=== PATIENT | male | born 1990 | race Two or more races ===

== ENCOUNTER 2020-09-02 20:04 | Emergency (ER) | payer SELFPAY ==
[2020-09-02] MEDS ORDERED: Lactated Ringers 1,000 ML IV ONE ×3 (20:34→21:58)
[2020-09-02] MEDS ORDERED: Ketorolac 30 MG/ML SDV IVPUSH ONE (20:34)
[2020-09-02] MEDS ORDERED: Ondansetron 4 MG/2 ML SDV IVPUSH ONE (20:34)
--- NOTE | 2020-09-02 20:41 | EDM.PDOC ---
ED HPI GENERAL MEDICAL PROBLEM - General Chief Complaint: General Stated Complaint: HIGH BLOOD SUGAR Time Seen by Provider: 09/02/20 20:04 Source of Information: Reports: Patient History Limitations: Reports: Language Barrier - History of Present Illness INITIAL COMMENTS - FREE TEXT/NARRATIVE: Patient comes in the emergency department with his friend with concerns of hyperglycemia. Patient is a [place]-speaking individual who speaks little to no Hungarian and his friend is interpreting for the most part and states that the patient has run out of his insulin-long acting as of 24 to 48 hours ago and the patient began feeling ill yesterday had sweats, nausea, and elevated blood sugars. Patient was beginning to feel little bit better this morning according to the patient's friend however then he began to decline which presented him to the emergency department. Patient feels nauseated, dizzy, blurred vision, thirsty, vomiting and fatigue. Patient states that he took his blood sugar at home and it was greater than 400. Bedside glucose shows 300s. Onset: Gradual Location: Reports: Generalized Quality: Reports: Other Improves with: Reports: None Worsens with: Reports: None Context: Reports: Other Associated Symptoms: Reports: No Other Symptoms - Related Data Allergies Allergy/AdvReac Type Severity Reaction Status Date / Time Penicillins Allergy Other Verified 09/02/20 21:07 Home Meds: Home Meds Insulin Glarg,Human.Rec.Analog [Lantus] 5 unit SQ BID #1 pen 09/02/20 [Rx] ED ROS GENERAL - Review of Systems Review Of Systems: Comprehensive ROS is negative, except as noted in HPI. Constitutional: Reports: Chills, Malaise, Weakness, Fatigue, Diaphoresis, Decreased Appetite HEENT: Reports: Vision Change Respiratory: Reports: No Symptoms Cardiovascular: Reports: Lightheadedness Endocrine: Reports: Fatigue, High Glucose, Polydypsia GI/Abdominal: Reports: Nausea, Vomiting : Reports: No Symptoms Musculoskeletal: Reports: No Symptoms Skin: Reports: No Symptoms Neurological: Reports: No Symptoms Psychiatric: Reports: No Symptoms Hematologic/Lymphatic: Reports: No Symptoms ED EXAM, GENERAL - Physical Exam Exam: See Below Exam Limited By: Language Barrier (non-wolof speaking- greek) General Appearance: Mild Distress Eye Exam: Bilateral Eye: EOMI, PERRL Ears: Normal External Exam, Normal Canal, Hearing Grossly Normal Nose: Normal Inspection, Normal Mucosa, No Blood Throat/Mouth: Normal Inspection, Normal Lips, No Airway Compromise, Other (dry mucosal membranes) Head: Atraumatic, Normocephalic Neck: Normal Inspection, Supple, Non-Tender, Full Range of Motion Respiratory/Chest: No Respiratory Distress, Lungs Clear, Normal Breath Sounds, N o Accessory Muscle Use, Chest Non-Tender Cardiovascular: Normal Peripheral Pulses, Regular Rate, Rhythm, No Edema GI/Abdominal: Normal Bowel Sounds, Soft, Non-Tender, No Abnormal Bruit, No Mass Back Exam: Normal Inspection, Full Range of Motion Extremities: Normal Inspection, Normal Range of Motion, Non-Tender, Normal Capillary Refill Neurological: Alert, Oriented, Normal Gait Psychiatric: Normal Affect, Normal Mood Skin Exam: Warm, Dry, Intact, Normal Color #1 Interpretation Rate (Beats/Min): 133 [place]: Normal P-Wave: Present QRS: Normal ST-T: Normal QT: Normal Comparison: NA - No Prior EKG Course - Vital Signs Last Recorded V/S: Last Vital Signs Temp 38.5 C H 09/02/20 20:20 Pulse 117 H 09/02/20 21:32 Resp 20 09/02/20 21:32 BP 113/70 09/02/20 21:32 Pulse Ox 91 L 09/02/20 21:32 - Orders/Labs/Meds Orders: Active Orders 24 hr Category Date Time Status Blood Glucose Check, Bedside [RC] ONETIME Care 09/02/20 20:29 Ordered EKG Documentation Completion [RC] STAT Care 09/02/20 20:29 Ordered Chest 1V Frontal [CR] Stat Exams 09/02/20 20:29 Ordered B-HYDROXYBUTYRATE [REF] Stat Lab 09/02/20 20:29 Ordered Dextrose 50% in Water Med 09/02/20 20:51 Ordered 50 ml IVPUSH ASDIRECTED PRN Glucagon,Human Recombinant [GlucaGen] Med 09/02/20 20:51 Ordered 1 mg IM ASDIRECTED PRN Insulin Glarg,Human.Rec.Analog [LantUS] Med 09/02/20 21:45 Ordered 5 unit SUBCUT DAILY Medication Orders Dextrose/Water (50% Dextrose In Water 50 Ml Syringe) 50 ml IVPUSH ASDIRECTED P RN PRN Reason: Hypoglycemia Glucagon (Glucagon,Human Recombinant 1 Mg Vial) 1 mg IM ASDIRECTED PRN PRN Reason: Hypoglycemia Insulin Glargine (Insulin Glarg,Human.Rec.Analog 100 Unit/Ml) 5 unit SUBCUT DAILY DI Labs: Laboratory Tests 09/02/20 09/02/20 09/02/20 Range/Units 20:11 20:20 20:20 WBC 11.6 H (4.0-10.0) x10^3/uL RBC 3.89 L (4.5-6.0) x10^6/uL Hgb 12.3 L (14.0-18.0) g/dL Hct 34.5 L (40.0-52.0) % MCV 88.7 (78.0-93.0) fL MCH 31.6 (26.0-32.0) pg MCHC 35.7 (32.0-36.0) g/dL RDW Coeff of Gordon 12.8 (10.0-15.0) % Plt Count 194 (130-400) x10^3/uL ABG pH (7.35-7.45) pH ABG pCO2 (35-48) mmHG ABG pO2 (83-108) mmHG ABG HCO3 (21-28) mmol/L ABG Total CO2 (22-29) mmol/L ABG O2 Content (94-98) % ABG Base Excess ((-2)-(+3)) mmol/L FiO2 Sodium (136-145) mmol/L Potassium (3.5-5.1) mmol/L Chloride (98-107) mmol/L Carbon Dioxide (21-32) mmol/L Anion Gap (5-15) mmol/L BUN (7-18) mg/dL Creatinine (0.70-1.30) mg/dL Est Cr Clr Drug Dosing mL/min Estimated GFR (MDRD) Glucose (70-99) mg/dL POC Glucose 319 H (70-99) mg/dL Lactic Acid 1.4 (0.4-2.0) mmol/L Calcium (8.5-10.1) mg/dL Corrected Calcium (8.5-10.1) mg/dL Total Bilirubin (0.2-1.0) mg/dL AST (15-37) U/L ALT (16-63) U/L Alkaline Phosphatase (46-116) U/L Troponin I High Sens (<=76) ng/L Total Protein (6.4-8.2) g/dL Albumin (3.4-5.0) g/dL Globulin Albumin/Globulin Ratio Amylase (25-115) U/L Lipase (73-393) U/L Urine Color (YELLOW) Urine Appearance (CLEAR) Urine pH (5.0-8.0) Ur Specific [place] Urine Protein (NEGATIVE) mg/dL Urine Glucose (UA) (NEGATIVE) mg/dL Urine Ketones (NEGATIVE) mg/dL Urine Occult Blood (NEGATIVE) Urine Nitrite (NEGATIVE) Urine Bilirubin (NEGATIVE) Urine Urobilinogen (0.2) EU/dL Ur Leukocyte Esterase (NEGATIVE) Urine RBC (NOT SEEN) /HPF Urine WBC (NOT SEEN) /HPF Ur Squamous Epith Cells (NOT SEEN) /HPF Urine Bacteria (NOT SEEN) /HPF Urine Mucus (NOT SEEN) /LPF 09/02/20 09/02/20 09/02/20 Range/Units 20:50 21:10 21:27 WBC (4.0-10.0) x10^3/uL RBC (4.5-6.0) x10^6/uL Hgb (14.0-18.0) g/dL Hct (40.0-52.0) % MCV (78.0-93.0) fL MCH (26.0-32.0) pg MCHC (32.0-36.0) g/dL RDW Coeff of Gordon (10.0-15.0) % Plt Count (130-400) x10^3/uL ABG pH 7.48 H (7.35-7.45) pH ABG pCO2 31 L (35-48) mmHG ABG pO2 62 L (83-108) mmHG ABG HCO3 23 (21-28) mmol/L ABG Total CO2 23 (22-29) mmol/L ABG O2 Content 93 L (94-98) % ABG Base Excess -1 ((-2)-(+3)) mmol/L FiO2 0.21 Sodium 134 L (136-145) mmol/L Potassium 3.5 (3.5-5.1) mmol/L Chloride 100 (98-107) mmol/L Carbon Dioxide 28 (21-32) mmol/L Anion Gap 9.5 (5-15) mmol/L BUN 15 (7-18) mg/dL Creatinine 1.1 (0.70-1.30) mg/dL Est Cr Clr Drug Dosing 61.36 mL/min Estimated GFR (MDRD) > 60 Glucose 250 H (70-99) mg/dL POC Glucose (70-99) mg/dL Lactic Acid (0.4-2.0) mmol/L Calcium 8.2 L (8.5-10.1) mg/dL Corrected Calcium 9.2 (8.5-10.1) mg/dL Total Bilirubin 0.4 (0.2-1.0) mg/dL AST 25 (15-37) U/L ALT 26 (16-63) U/L Alkaline Phosphatase 149 H (46-116) U/L Troponin I High Sens 7 (<=76) ng/L Total Protein 7.6 (6.4-8.2) g/dL Albumin 2.7 L (3.4-5.0) g/dL Globulin 4.9 Albumin/Globulin Ratio 0.55 Amylase 16 L (25-115) U/L Lipase 45 L (73-393) U/L Urine Color Yellow (YELLOW) Urine Appearance Clear (CLEAR) Urine pH 6.0 (5.0-8.0) Ur Specific [place] 1.020 Urine Protein >=300 H (NEGATIVE) mg/dL Urine Glucose (UA) 500 H (NEGATIVE) mg/dL Urine Ketones Trace H (NEGATIVE) mg/dL Urine Occult Blood Moderate H (NEGATIVE) Urine Nitrite Negative (NEGATIVE) Urine Bilirubin Negative (NEGATIVE) Urine Urobilinogen 1.0 (0.2) EU/dL Ur Leukocyte Esterase Negative (NEGATIVE) Urine RBC 10-20 H (NOT SEEN) /HPF Urine WBC 0-5 (NOT SEEN) /HPF Ur Squamous Epith Cells Not seen (NOT SEEN) /HPF Urine Bacteria Rare (NOT SEEN) /HPF Urine Mucus Rare H (NOT SEEN) /LPF Meds: Medications Generic Name Dose Route Start Last Admin Trade Name Freq PRN Reason Stop Dose Admin Dextrose/Water 50 ml 09/02/20 20:51 50% Dextrose In Water 50 Ml Syringe IVPUSH ASDIRECTED PRN Hypoglycemia Glucagon 1 mg 09/02/20 20:51 Glucagon,Human Recombinant 1 Mg Vial IM ASDIRECTED PRN Hypoglycemia Insulin Glargine 5 unit 09/02/20 21:45 Insulin Glarg,Human.Rec.Analog 100 Unit/Ml SUBCUT DAILY DI Discontinued Medications Generic Name Dose Route Start Last Admin Trade Name Ramez PRN Reason Stop Dose Admin Lactated Ringer's 1,000 mls @ 1,000 mls/hr 09/02/20 20:34 09/02/20 20:20 Ringers, Lactated IV 09/02/20 21:33 1,000 mls/hr ONETIME ONE Administration Lactated Ringer's 1,000 mls @ 1,000 mls/hr 09/02/20 20:34 09/02/20 20:40 Ringers, Lactated IV 09/02/20 21:33 1,000 mls/hr ONETIME ONE Administration Insulin Human Regular 5 unit 09/02/20 20:51 Insulin Regular, Human 100 Units/Ml 3 Ml Vial IVPUSH 09/02/20 20:52 ONETIME ONE Ketorolac Tromethamine 30 mg 09/02/20 20:34 09/02/20 20:51 Ketorolac 30 Mg/Ml Sdv IVPUSH 09/02/20 20:35 30 mg ONETIME ONE Administration Ondansetron HCl 4 mg 09/02/20 20:34 09/02/20 20:51 Ondansetron 4 Mg/2 Ml Sdv IVPUSH 09/02/20 20:35 4 mg ONETIME ONE Administration - Re-Assessments/Exams Free Text/Narrative Re-Assessment/Exam: 09/02/20 21:51 Patient is feeling much better. It is recommended that he remain in the hospital at minimum over night however he is not willing. He understands the risk and willing to assume then and would like to go home with a script for Lantus. Departure - Departure Time of Disposition: 22:00 Disposition: Home, Self-Care 01 Condition: Good Clinical Impression: Hyperglycemia Diabetes mellitus Qualifiers: Diabetes mellitus type: type 1 Diabetes mellitus complication status: without complication Qualified Code(s): E10.9 - Type 1 diabetes mellitus without complications - Discharge Information *PRESCRIPTION DRUG MONITORING PROGRAM REVIEWED*: Not Applicable *COPY OF PRESCRIPTION DRUG MONITORING REPORT IN PATIENT KAREN: Not Applicable Instructions: Diabetes Mellitus and Sick Day Management, Hyperglycemia, [id number] Forms: ED Department Discharge Additional Instructions: 1. rest 2. increase your water intake 3. Continue all at home medications 4. Activity and diet as tolerated 5. Can take over the counter Tylenol for any pain or discomfort 6. Follow up with PCP if symptoms continue, return, or progress 7. Call with any questions or concerns 8. It is recommended that you remain hospitalized to monitor your blood sugars. You understand the risk of not remaining under a providers care. Sepsis Event Note (ED) - Focused Exam Vital Signs: Vital Signs Temp Pulse Resp BP Pulse Ox 09/02/20 21:32 117 H 20 113/70 91 L 09/02/20 20:20 38.5 C H 127 H 20 130/72 94 L - My Orders Last 24 Hours: My Active Orders 09/02/20 20:29 Blood Glucose Check, Bedside [RC] ONETIME EKG Documentation Completion [RC] STAT Chest 1V Frontal [CR] Stat B-HYDROXYBUTYRATE [REF] Stat 09/02/20 20:51 Dextrose 50% in Water 50 ml IVPUSH ASDIRECTED PRN Glucagon,Human Recombinant [GlucaGen] 1 mg IM ASDIRECTED PRN 09/02/20 21:45 Insulin Glarg,Human.Rec.Analog [LantUS] 5 unit SUBCUT DAILY - Assessment/Plan Last 24 Hours: My Active Orders 09/02/20 20:29 Blood Glucose Check, Bedside [RC] ONETIME EKG Documentation Completion [RC] STAT Chest 1V Frontal [CR] Stat B-HYDROXYBUTYRATE [REF] Stat 09/02/20 20:51 Dextrose 50% in Water 50 ml IVPUSH ASDIRECTED PRN Glucagon,Human Recombinant [GlucaGen] 1 mg IM ASDIRECTED PRN 09/02/20 21:45 Insulin Glarg,Human.Rec.Analog [LantUS] 5 unit SUBCUT DAILY Assessment:: 1. hyperglycemia 2. tachycardia 3. nausea Plan: 1. Labs completed in the ER. Results reviewed with the patient 2. EKG completed in the ER. Results reviewed with the patient 3. IV initiated in the emergency department 4. IV fluids provided- LR 2 liters given 5. Pain medication given for severe pain and discomfort- Toradol given 6. Zofran given in the ER to help with nausea 7. insulin 5 units Lantus 8. UA completed 9. ABG completed 10. Patient is not willing to stay in the hospital despite education. He will assume the risk and understands the risk of DKA and not staying for further t reatment 11. Patient will be transferred to a higher level of care needing further medical and/or surgical interventions 12. Patient and nursing staff was updated regarding the plan of care 13. Patient and family are agreeable to the above plan of care 14. All questions and concerns were addressed with the patient and family prior to discharge
[2020-09-02] MEDS ORDERED: 50% Dextrose in Water 50 ML Syringe IVPUSH PRN (20:51)
[2020-09-02] MEDS ORDERED: Insulin Regular, Human 100 Units/ML 3 ML Vial IVPUSH ONE (20:51)
[2020-09-02] MEDS ORDERED: Glucagon,Human Recombinant 1 MG Vial IM PRN (20:51)
[2020-09-02 20:59] LABS: BASE EXCESS ARTERIAL -1 mmol/L ((-2)-(+3)); BICARBONATE,ARTERIAL 23 mmol/L (21-28); PCO2 ARTERIAL 31 mmHG (35-48); PO2 ARTERIAL 62 mmHG (83-108)
[2020-09-02 21:35] LABS: ANION GAP 9.5 mmol/L (5-15); CHLORIDE,CL 100 mmol/L (98-107); SODIUM,NA 134 mmol/L (136-145)
[2020-09-02] MEDS ORDERED: Insulin Glarg,Human.Rec.Analog 100 Unit/ML SUBCUT SCH (21:45)
--- NOTE | 2020-09-03 13:11 | CR ---
[id number] RAD/RAD Chest PA or AP 1V EXAM: SINGLE VIEW CHEST. INDICATION: DIABETIC KETOACIDOSIS COMPARISON: NO PREVIOUS SIMILAR EXAM IS AVAILABLE FINDINGS: The lungs are clear The cardiac silhouette is normal IMPRESSION: NO PNEUMONIA Alessandro Ryder MD 09/03/20 [id number] Thank you for allowing us to participate in the care of your patient.
== END 2020-09-02 22:45 | disposition home or self-care (01) ==
LOC: VM.ED 20:04
DX: E10.65 Type 1 diabetes mellitus with hyperglycemia (principal); Z88.0 Allergy status to penicillin
CPT/HCPCS: 36415; 36600; 71045; 80053; 81001; 82010; 82150; 82803; 82947; 83605; 83690; 84484; 85027; 93005; 93010; 96374; 96375; 99284; 99285-25; J1885; J2405; J7120

== ENCOUNTER 2020-09-08 21:35 | Emergency (ER) | payer SELFPAY ==
[2020-09-08] MEDS ORDERED: Sodium Chloride 0.9% 10 ML Syringe FLUSH PRN (22:29)
[2020-09-08] MEDS ORDERED: Piperacillin/Tazobactam 4.5 GM in Sodium Chloride 0.9% 100 ML IV ONE (22:33)
[2020-09-08] MEDS ORDERED: Lactated Ringers 1,000 ML IV ONE (22:33)
[2020-09-08] MEDS ORDERED: Iopamidol 612 MG/ML 100 ML Bottle IVPUSH ONE (22:50)
[2020-09-08] MEDS ORDERED: Piperacillin/Tazobactam 4.5 GM Vial ONE (22:57)
[2020-09-08 23:00] LABS: BASE EXCESS VENOUS 2 mmol/L ((-2)-3); BICARBONATE,VENOUS 25 mmol/L (22-29); O2 SATURATION VENOUS 82 %; PCO2 VENOUS 32 mmHG (41-51); PH,VENOUS 7.51 pH (7.33-7.43); PO2 VENOUS 41 mmHG
[2020-09-08] MEDS ORDERED: Clindamycin Phosphate in D5W 600 MG in Premix Bag 1 BAG IV ONE ×2 (23:17)
[2020-09-08 23:19] LABS: CHLORIDE,CL 89 mmol/L (98-107)
[2020-09-08 23:22] LABS: ANION GAP 13.1 mmol/L (5-15); SODIUM,NA 127 mmol/L (136-145)
[2020-09-08] MEDS ORDERED: Potassium Chloride 10% 20 MEQ/15 ML Soln 15 ML UD Cup PO ONE (23:35)
[2020-09-08] MEDS ORDERED: 50% Dextrose in Water 50 ML Syringe IVPUSH PRN (23:38)
[2020-09-08] MEDS ORDERED: Insulin Regular, Human 100 Units/ML 3 ML Vial SUBCUT STA (23:38)
[2020-09-08] MEDS ORDERED: Glucagon,Human Recombinant 1 MG Vial IM PRN (23:38)
[2020-09-08] MEDS ORDERED: Clindamycin Phosphate in D5W 50 ML ONE (23:38)
[2020-09-08] MEDS ORDERED: Sodium Chloride 0.9% 1,000 ML IV ONE (23:39)
[2020-09-08] MEDS ORDERED: Diphtheria,Pertussis(Acell),Tetanus Vaccine 0.5 ML Syringe IM ONE (23:46)
[2020-09-08] MEDS ORDERED: HYDROmorphone 1 MG/ML Syringe IVPUSH ONE (23:48)
[2020-09-08] MEDS ORDERED: Ondansetron 4 MG/2 ML SDV IV ONE (23:54)
[2020-09-09] MEDS ORDERED: Potassium Chloride Riders 10 MEQ in Premix Bag 1 BAG IV ONE (00:01)
--- NOTE | 2020-09-09 00:10 | EDM.PDOC ---
ED HPI GENERAL MEDICAL PROBLEM - General Stated Complaint: ankle infection Time Seen by Provider: 09/08/20 22:15 Source of Information: Reports: Patient, Family, [employer] History Limitations: Reports: No Limitations - History of Present Illness INITIAL COMMENTS - FREE TEXT/NARRATIVE: Patient comes emergency department today with his friends and family with concerns of an infection to his left lower extremity. This patient speaks [place]ian and his family members have agreed to translate for him. According to the family per translation patient on twisted his left ankle while he was at work. He was not seen at that time. 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 He is also a type I diabetic. His blood sugars been 2 50-300 the last couple of days. When he twisted his ankle on there was no breaks in the skin. This morning when he woke up he noticed on the lateral aspect of his left ankle there was a rather large blister. Tonight this blister opened up and started draining purulent fluid. He does complain of generalized malaise myalgias as well as fever and chills. No chest pain or shortness of breath or difficulty breathing. No cough or congestion. No abdominal pain. Some nausea without vomiting. His last tetanus immunization was in 2019 when he had the surgery on his foot for the gangrene. left outer ankle Pain Score (Numeric/FACES): 4 - Related Data Allergies Allergy/AdvReac Type Severity Reaction Status Date / Time Penicillins Allergy Other Verified 09/02/20 21:07 Home Meds: Home Meds Insulin Glarg,Human.Rec.Analog [Lantus] 5 unit SQ BID #1 pen 09/02/20 [Rx] Past Medical History Endocrine/Metabolic History: Reports: Diabetes, Type I Social & Family History - Family History Family Medical History: Unobtainable ED ROS GENERAL - Review of Systems Review Of Systems: Comprehensive ROS is negative, except as noted in HPI. ED EXAM, SEPSIS - Physical Exam Exam: See Below Text/Narrative:: Some what ill appearing alert and appropriate. Exam Limited By: Language Barrier General Appearance: Alert, WD/WN, Mild Distress Eye Exam: Bilateral Eye: EOMI Head: Atraumatic, Normocephalic Neck: Normal Inspection Respiratory/Chest: No Respiratory Distress, Lungs Clear, Normal Breath Sounds, No Accessory Muscle Use, Chest Non-Tender Cardiovascular: Normal Peripheral Pulses, Regular Rate, Rhythm, Tachycardia Peripheral Pulses: 1+: Posterior Tibial (L), Posterior Tibial (R), Dorsalis Pedis (L), Dorsalis Pedis (R), 2+: Radial (L), Radial (R) GI/Abdominal Exam: Normal Bowel Sounds, Soft (Male) Exam: Deferred Rectal (Males) Exam: Deferred Back: Normal Inspection, Full Range of Motion Extremities: Normal Capillary Refill. No: Normal Inspection (There is a ratherOn the lateral aspect of his left malleolus large about 4 cm open draining abscess with quite a bit of cellulitis surrounding this area as well. He has a well-healed surgical amputation of the forefoot. There is no cellulitis streaking up the leg. CMS intact. ) Neurological: Alert, Oriented, No Motor/Sensory Deficits Psychiatric: Normal Affect, Normal Mood Skin: No Rash, Cool, Diaphoretic, Pallor Course - Vital Signs Last Recorded V/S: Last Vital Signs Temp 102 F H 09/09/20 00:05 Pulse 120 H 09/09/20 00:05 Resp 18 09/09/20 00:05 BP 153/97 H 09/09/20 00:05 Pulse Ox 92 L 09/09/20 00:05 - Orders/Labs/Meds Orders: Active Orders 24 hr Category Date Time Status ANAEROBIC CULTURE Stat Lab 09/08/20 23:45 Received Labs: Laboratory Tests 09/08/20 09/08/20 09/08/20 Range/Units 22:38 22:38 22:38 WBC 23.0 H* (4.0-10.0) x10^3/uL RBC 3.48 L (4.5-6.0) x10^6/uL Hgb 11.0 L (14.0-18.0) g/dL Hct 31.2 L (40.0-52.0) % MCV 89.7 (78.0-93.0) fL MCH 31.6 (26.0-32.0) pg MCHC 35.3 (32.0-36.0) g/dL RDW Coeff of Gordon 13.3 (10.0-15.0) % Plt Count 450 H D (130-400) x10^3/uL Add Manual Diff Yes Neutrophils % (Manual) 72 (50-80) % Band Neutrophils % 4 (0-6) % Lymphocytes % (Manual) 11 L (25-50) % Monocytes % (Manual) 7 (2-11) % Metamyelocytes % 2 H (0) % Myelocytes % 2 H (0) % Blast Cells % 2 H (0) % Hypersegmented Neuts Occasional H Platelet Estimate Increased H ESR (0-15) mm/hr VBG pH (7.33-7.43) pH VBG pCO2 (41-51) mmHG VBG pO2 mmHG VBG HCO3 (22-29) mmol/L VBG Total CO2 (23-30) mmol/L VBG O2 Saturation % VBG Base Excess ((-2)-3) mmol/L Sodium 127 L* (136-145) mmol/L Potassium 3.1 L (3.5-5.1) mmol/L Chloride 89 L (98-107) mmol/L Carbon Dioxide 28 (21-32) mmol/L Anion Gap 13.1 (5-15) mmol/L BUN 15 (7-18) mg/dL Creatinine 1.0 (0.70-1.30) mg/dL Est Cr Clr Drug Dosing TNP Estimated GFR (MDRD) > 60 Glucose 279 H (70-99) mg/dL POC Glucose (70-99) mg/dL Lactic Acid 1.4 (0.4-2.0) mmol/L Calcium 8.3 L (8.5-10.1) mg/dL Corrected Calcium 10.2 H (8.5-10.1) mg/dL Magnesium (1.8-2.4) mg/dL Total Bilirubin 0.6 (0.2-1.0) mg/dL AST 23 (15-37) U/L ALT 30 (16-63) U/L Alkaline Phosphatase 179 H (46-116) U/L C-Reactive Protein 48.2 H (<=0.9) mg/dL Total Protein 8.1 (6.4-8.2) g/dL Albumin 1.6 L (3.4-5.0) g/dL Globulin 6.5 Albumin/Globulin Ratio 0.25 Procalcitonin (0.1-0.50) ng/mL 07/30/21 07/30/21 07/30/21 Range/Units 22:38 22:38 22:38 WBC (4.0-10.0) x10^3/uL RBC (4.5-6.0) x10^6/uL Hgb (14.0-18.0) g/dL Hct (40.0-52.0) % MCV (78.0-93.0) fL MCH (26.0-32.0) pg MCHC (32.0-36.0) g/dL RDW Coeff of Gordon (10.0-15.0) % Plt Count (130-400) x10^3/uL Add Manual Diff Neutrophils % (Manual) (50-80) % Band Neutrophils % (0-6) % Lymphocytes % (Manual) (25-50) % Monocytes % (Manual) (2-11) % Metamyelocytes % (0) % Myelocytes % (0) % Blast Cells % (0) % Hypersegmented Neuts Platelet Estimate ESR 99 H (0-15) mm/hr VBG pH (7.33-7.43) pH VBG pCO2 (41-51) mmHG VBG pO2 mmHG VBG HCO3 (22-29) mmol/L VBG Total CO2 (23-30) mmol/L VBG O2 Saturation % VBG Base Excess ((-2)-3) mmol/L Sodium (136-145) mmol/L Potassium (3.5-5.1) mmol/L Chloride (98-107) mmol/L Carbon Dioxide (21-32) mmol/L Anion Gap (5-15) mmol/L BUN (7-18) mg/dL Creatinine (0.70-1.30) mg/dL Est Cr Clr Drug Dosing Estimated GFR (MDRD) Glucose (70-99) mg/dL POC Glucose (70-99) mg/dL Lactic Acid (0.4-2.0) mmol/L Calcium (8.5-10.1) mg/dL Corrected Calcium (8.5-10.1) mg/dL Magnesium 1.7 L (1.8-2.4) mg/dL Total Bilirubin (0.2-1.0) mg/dL AST (15-37) U/L ALT (16-63) U/L Alkaline Phosphatase (46-116) U/L C-Reactive Protein (<=0.9) mg/dL Total Protein (6.4-8.2) g/dL Albumin (3.4-5.0) g/dL Globulin Albumin/Globulin Ratio Procalcitonin 1.14 H (0.1-0.50) ng/mL 09/08/20 09/09/20 Range/Units 22:46 01:27 WBC (4.0-10.0) x10^3/uL RBC (4.5-6.0) x10^6/uL Hgb (14.0-18.0) g/dL Hct (40.0-52.0) % MCV (78.0-93.0) fL MCH (26.0-32.0) pg MCHC (32.0-36.0) g/dL RDW Coeff of Gordon (10.0-15.0) % Plt Count (130-400) x10^3/uL Add Manual Diff Neutrophils % (Manual) (50-80) % Band Neutrophils % (0-6) % Lymphocytes % (Manual) (25-50) % Monocytes % (Manual) (2-11) % Metamyelocytes % (0) % Myelocytes % (0) % Blast Cells % (0) % Hypersegmented Neuts Platelet Estimate ESR (0-15) mm/hr VBG pH 7.51 H (7.33-7.43) pH VBG pCO2 32 L (41-51) mmHG VBG pO2 41 mmHG VBG HCO3 25 (22-29) mmol/L VBG Total CO2 25 (23-30) mmol/L VBG O2 Saturation 82 % VBG Base Excess 2 ((-2)-3) mmol/L Sodium (136-145) mmol/L Potassium (3.5-5.1) mmol/L Chloride (98-107) mmol/L Carbon Dioxide (21-32) mmol/L Anion Gap (5-15) mmol/L BUN (7-18) mg/dL Creatinine (0.70-1.30) mg/dL Est Cr Clr Drug Dosing Estimated GFR (MDRD) Glucose (70-99) mg/dL POC Glucose 182 H (70-99) mg/dL Lactic Acid (0.4-2.0) mmol/L Calcium (8.5-10.1) mg/dL Corrected Calcium (8.5-10.1) mg/dL Magnesium (1.8-2.4) mg/dL Total Bilirubin (0.2-1.0) mg/dL AST (15-37) U/L ALT (16-63) U/L Alkaline Phosphatase (46-116) U/L C-Reactive Protein (<=0.9) mg/dL Total Protein (6.4-8.2) g/dL Albumin (3.4-5.0) g/dL Globulin Albumin/Globulin Ratio Procalcitonin (0.1-0.50) ng/mL Meds: Medications Discontinued Medications Generic Name Dose Route Start Last Admin Trade Name Freq PRN Reason Stop Dose Admin Dextrose/Water 50 ml 09/08/20 23:38 50% Dextrose In Water 50 Ml Syringe IVPUSH ASDIRECTED PRN Hypoglycemia Diphtheria/Tetanus/Acell Pertussis 0.5 ml 09/08/20 23:46 09/09/20 02:16 Diphtheria,Pertussis(Acell),Tetanus Vaccine 0.5 Ml Syringe IM 09/08/20 23:47 Not Given .ONCE ONE Glucagon 1 mg 09/08/20 23:38 Glucagon,Human Recombinant 1 Mg Vial IM ASDIRECTED PRN Hypoglycemia Hydromorphone HCl 1 mg 09/08/20 23:48 09/09/20 02:16 Hydromorphone 1 Mg/Ml Syringe IVPUSH 09/08/20 23:49 Not Given ONETIME ONE Vancomycin HCl 1 gm/ Sodium 250 mls @ 250 mls/hr 09/08/20 22:31 09/08/20 23:50 Chloride IV 09/08/20 23:30 250 mls/hr STAT ONE Administration Lactated Ringer's 1,000 mls @ 999 mls/hr 09/08/20 22:33 09/08/20 22:55 Ringers, Lactated IV 09/08/20 23:33 999 mls/hr ONETIME ONE Administration Piperacillin Sod/Tazobactam 100 mls @ 200 mls/hr 09/08/20 22:33 09/08/20 22:55 Sod 4.5 gm/ Sodium Chloride IV 09/08/20 23:02 200 mls/hr STAT ONE Administration Clindamycin Phosphate 600 mg/ 50 mls @ 150 mls/hr 09/08/20 23:17 09/08/20 23:30 Premix IV 09/08/20 23:36 150 mls/hr ONETIME ONE Administration Clindamycin Phosphate Confirm 09/08/20 23:38 09/09/20 00:32 Cleocin In D5w 600 Mg/50 Ml Administered 09/08/20 23:39 Not Given Dose 50 mls @ as directed .ROUTE .STK-MED ONE Sodium Chloride 1,000 mls @ 999 mls/hr 09/08/20 23:39 09/08/20 23:54 Normal Saline IV 09/09/20 00:39 999 mls/hr ONETIME ONE Administration Potassium Chloride 10 meq/ 50 mls @ 50 mls/hr 09/09/20 00:01 09/09/20 00:05 Premix IV 09/09/20 01:00 50 mls/hr ONETIME ONE Administration Insulin Human Regular 5 unit 09/08/20 23:38 09/08/20 23:55 Insulin Regular, Human 100 Units/Ml 3 Ml Vial SUBCUT 09/08/20 23:39 5 units NOW STA Administration Iopamidol 100 ml 09/08/20 22:50 09/08/20 23:24 Iopamidol 612 Mg/Ml 100 Ml Bottle IVPUSH 09/08/20 22:51 100 ml ONETIME ONE Administration Ondansetron HCl 4 mg 09/08/20 23:54 09/08/20 23:58 Ondansetron 4 Mg/2 Ml Sdv IV 09/08/20 23:55 4 mg ONETIME ONE Administration Piperacillin Sod/Tazobactam Sod Confirm 09/08/20 22:57 09/09/20 00:30 Piperacillin/Tazobactam 4.5 Gm Vial Administered 09/08/20 22:58 Not Given Dose 4.5 gm .ROUTE .STK-MED ONE Potassium Chloride 40 meq 09/08/20 23:35 09/08/20 23:55 Potassium Chloride 10% 20 Meq/15 Ml Soln 15 Ml Ud Cup PO 09/08/20 23:36 40 meq ONETIME ONE Administration Sodium Chloride 10 ml 09/08/20 22:29 Sodium Chloride 0.9% 10 Ml Syringe FLUSH ASDIRECTED PRN Keep Vein Open - Radiology Interpretation Free Text/Narrative:: CT scan of the left lower extremity with contrast concerning for abscess shows a subcutaneous edema/fluid and stranding are noted. There are numerous subcutaneous gas bubbles in association with subcutaneous fluid seen laterally in the left ankle. Associated rim enhancement is noted involving portions of the fluid. Findings suggestive of phlegmon/abscess. Limited sensitivity for osteomyelitis. Nonemergent MRI. Additional findings as detailed above. I personally reviewed the CT as well and I have concerns for gas-forming gangrene or necrotizing fasciitis - Re-Assessments/Exams Free Text/Narrative Re-Assessment/Exam: 09/09/20 This patient does somewhat appear toxic or ill-appearing. IV was established labs were drawn to include blood cultures x2. Zosyn 4.5 g IV piggyback to cover for Pseudomonas with this diabetic foot infection. Aerobic and anaerobic wound cultures were obtained. CBC with a marked elevation in his WBC of 23.4. Initially reviewing the CT scan of the lower extremity I see quite a bit of fluid and stranding on the left lower extremity of the lateral malleolus. There is quite a bit of gas bubbles and fluid located in the lateral aspect of the left ankle. I have concerns for necrotizing fasciitis and/or gangrene. Vancomycin 1 g IV piggyback. Clindamycin 600 mg IV piggyback. Normal saline 1 L wide open. Lactated Ringer's 1 L wide open. Dilaudid for pain. Potassium 40 mEq orally with a potassium of 3.1. As well as a potassium 10meq rider because he was also given subcutaneous insulin. Zofran for nausea. Lactic acid normal with a minimally elevated procalcitonin CRP very elevated in the upper 40s. ESR 99 I called and spoke with Dr. Torres at [facility] in [place]. HPI ER Course findings and concerns related to Dr. Torres. She accepted the patient in transfer at this time with no new orders. I discussed my concerns with the patient as well as his family for gangrene of the left lower extremities. As well as sepsis without septic shock. He is understanding of the concerns and comfortable with this plan and his questions answered. He does have a sodium of 127 which is corrected with his hyperglycemia just 130. Departure - Departure Time of Disposition: 23:20 Disposition: DC/Tfer to [facility] 02 Clinical Impression: Gangrene of lower extremity, Hyperglycemia, Hypokalemia, Hypomagnesemia Diabetes mellitus Qualifiers: Diabetes mellitus type: type 1 Diabetes mellitus complication status: without complication Qualified Code(s): E10.9 - Type 1 diabetes mellitus without complications Sepsis Qualifiers: Sepsis type: sepsis due to unspecified organism Sepsis acute organ dysfunction status: without acute organ dysfunction Qualified Code(s): A41.9 - Sepsis, unspecified organism - Discharge Information Referrals: PCP,Not In Area [Primary Care Provider] - Forms: Interfacility Transfer EMTALA - My Orders Last 24 Hours: My Active Orders 09/08/20 23:45 ANAEROBIC CULTURE Stat - Assessment/Plan Last 24 Hours: My Active Orders 09/08/20 23:45 ANAEROBIC CULTURE Stat
--- NOTE | 2020-09-09 13:49 | CT ---
[id number] CT/CT Ankle Left W IV EXAM: CT LEFT ANKLE WITH CONTRAST. INDICATION: LATERAL MALLEOLUS ABSCESS DM. COMPARISON: None. DISCUSSION: Postsurgical changes following transmetatarsal amputation of the 1st through 5th digits. Stranding and edema within the superficial soft tissues of the left lower leg, left ankle and left foot. There are numerous foci of gas associated with the fluid located in the lateral aspect of the left ankle. Additionally there appears to be an associated organized fluid collection measuring up to 3.4 x 1.1 cm. There is no definite evidence of osteomyelitis however this is difficult to evaluate on CT and MRI could be considered if concern. Chronic changes of the lateral aspect of the talus. No definite fractures identified. IMPRESSION: Stranding and edema within the superficial soft tissues of the left lower leg, left ankle and left foot. There are numerous foci of gas associated with the fluid located in the lateral aspect of the left ankle. Additionally there appears to be an associated organized fluid collection measuring up to 3.4 x 1.1 cm. Findings are consistent with an abscess. Given the foci of air, there is concern for necrotizing fasciitis. Uzair Palmer DO 09/09/20 [id number] Thank you for allowing us to participate in the care of your patient.
== END 2020-09-09 01:30 | disposition short-term general hospital (02) ==
LOC: VM.ED 21:35
DX: A41.9 Sepsis, unspecified organism (principal); I96 Gangrene, not elsewhere classified; E10.52 Type 1 diabetes mellitus with diabetic peripheral angiopathy with gangrene; E10.65 Type 1 diabetes mellitus with hyperglycemia; E87.6 Hypokalemia; E83.42 Hypomagnesemia
CPT/HCPCS: 36415; 73701; 80053; 82010; 82803; 82947; 83605; 83735; 84145; 85025; 85652; 86140; 87040; 87070; 87075; 87077; 87186; 96365; 96367; 96375; 99284; 99285-25; A9270-GY; J1815-GY; J2405; J2543; J3370; J3480; J3490; J7030; J7050; J7120; Q9967

== ENCOUNTER 2020-11-15 18:42 | Inpatient (IN) | payer MEDICAID ==
[2020-11-15] MEDS ORDERED: Sodium Chloride 0.9% 10 ML Syringe FLUSH PRN (18:47)
--- NOTE | 2020-11-15 18:57 | EDM.PDOC ---
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 - Past Surgical History Musculoskeletal Surgical History: Reports: Amputation Other Musculoskeletal Surgeries/Procedures:: top of left foot/toes, fingers on right hand Social & Family History - Family History Family Medical History: Unobtainable Departure - Departure Disposition: Admitted As Inpatient 64 Clinical Impression: Septic arthritis Diabetes mellitus Qualifiers: Diabetes mellitus type: type 1 Diabetes mellitus complication status: without complication Qualified Code(s): E10.9 - Type 1 diabetes mellitus without complications - Discharge Information <Irais Maya - Last Filed: 11/15/20 23:53> ED HPI GENERAL MEDICAL PROBLEM - General Source of Information: Reports: Patient History Limitations: Reports: Language Barrier - History of Present Illness INITIAL COMMENTS - FREE TEXT/NARRATIVE: Robby is a 30 year old male who presents to ER with complaints of right knee pain that has worsened over the last 2 day days. Has had ongoing issues with this since a month ago. Has had 2 prior surgeries on this knee due to infection. Friend states has been told that needs to stay in the hospital for longer period of time to have IV antibiotics due to sepsis but "signs himself out". Had an accident a year ago with issues in his left foot and states thought the infection had migrated to his right knee. Unsure of any fevers. No nausea/vomiting. Onset: Gradual Duration: Day(s):, Getting Worse Location: Reports: Lower Extremity, Right Quality: Reports: Ache, Throbbing Severity: Severe Improves with: Reports: None Worsens with: Reports: Movement Associated Symptoms: Denies: Confusion, Chest Pain, Cough, Fever/Chills, Loss of Appetite, Nausea/Vomiting, Shortness of Breath Past Medical History - Infectious Disease History Infectious Disease History: Reports: Other (See Below) Other Infectious Disease History: septic knee, abscess of left foot - Past Surgical History Musculoskeletal Surgical History: Reports: Other (See Below) (I & D of right knee) Social & Family History - Tobacco Use Tobacco Use Status *Q: Unknown Ever Used Tobacco Review of Systems - Review of Systems Review Of Systems: See Below Constitutional: Reports: Weakness. Denies: Chills, Fever Eyes: Reports: No Symptoms. Denies: Vision Change Ears: Denies: Dizziness Nose: Reports: No Symptoms Mouth/Throat: Reports: No Symptoms Respiratory: Denies: Shortness of Breath, Cough Cardiovascular: Denies: Chest Pain, Palpitations GI/Abdominal: Denies: Abdominal Pain, Diarrhea, Nausea, Vomiting Genitourinary: Reports: No Symptoms Musculoskeletal: Reports: Joint Pain Skin: Reports: Other (diabetic ulcer to left ankle) Neurological: Reports: No Symptoms ED EXAM, GENERAL - Physical Exam Exam: See Below Exam Limited By: Language Barrier General Appearance: Alert, Mild Distress Ears: Normal External Exam, Normal TMs Nose: Normal Inspection, Normal Mucosa, No Blood Throat/Mouth: Normal Inspection, Normal Oropharynx Head: Normocephalic Neck: Normal Inspection, Supple, Non-Tender Respiratory/Chest: No Respiratory Distress, Lungs Clear, Normal Breath Sounds Cardiovascular: Regular Rate, Rhythm GI/Abdominal: Normal Bowel Sounds, Soft, Non-Tender Extremities: Joint Swelling (right knee has significant swelling, very tender to the touch), Limited Range of Motion, Increased Warmth Neurological: Alert, Oriented Skin Exam: Other (skin is fannie to lower extremities. Has left crusted ulcer to left lateral ankle. Venous stasis changes to lower extremity. Amputations of his toes on his left foot. ). No: Erythema Course - Vital Signs Last Recorded V/S: Last Vital Signs Temp 98.3 F 11/15/20 18:47 Pulse 112 H 11/15/20 18:47 Resp 24 H 11/15/20 18:47 BP 109/85 11/15/20 18:47 Pulse Ox 99 11/15/20 18:47 - Orders/Labs/Meds Orders: Active Orders 24 hr Category Date Time Status Patient Status [ADT] Routine ADT 11/15/20 23:19 Active Knee w Cont Rt [CT] Stat Exams 11/15/20 18:47 Taken CULTURE BLOOD [BC] Stat Lab 11/15/20 18:55 Received CULTURE BLOOD [BC] Stat Lab 11/15/20 19:00 Received Sodium Chloride 0.9% [Saline Flush] Med 11/15/20 18:47 Active 10 ml FLUSH ASDIRECTED PRN Blood Culture x2 Reflex Set [OM.PC] Stat Oth 11/15/20 18:47 Ordered Saline Lock Insert [OM.PC] Routine Oth 11/15/20 18:47 Ordered Medication Orders Acetaminophen (Acetaminophen 325 Mg Tab) 650 mg PO Q4H PRN PRN Reason: Pain (Mild 1-3)/fever Dextrose/Water (50% Dextrose In Water 50 Ml Syringe) 50 ml IVPUSH ASDIRECTED PRN PRN Reason: Hypoglycemia Glucagon (Glucagon,Human Recombinant 1 Mg Vial) 1 mg IM ASDIRECTED PRN PRN Reason: Hypoglycemia Hydromorphone HCl (Hydromorphone 0.5 Mg/0.5 Ml Syringe) 0.5 mg IVPUSH Q4H PRN PRN Reason: Pain (severe 7-10) Vancomycin HCl 1 gm/ Sodium (Chloride) 250 mls @ 250 mls/hr IV STAT ONE Stop: 11/16/20 00:41 Sodium Chloride (Normal Saline) 1,000 mls @ 100 mls/hr IV ASDIRECTED [facility] Insulin Glargine (Insulin Glarg,Human.Rec.Analog 100 Unit/Ml) 30 unit SUBCUT DAILY [facility] Insulin Human Lispro (Insulin Lispro 100 Units/Ml 3 Ml Vial) 0 unit SUBCUT TIDMEALS [facility]; Protocol Sodium Chloride (Sodium Chloride 0.9% 10 Ml Syringe) 10 ml FLUSH ASDIRECTED PRN PRN Reason: Keep Vein Open Vancomycin HCl (Pharmacy To Dose - Vancomycin) 1 dose .XX ASDIRECTED [facility] Labs: Laboratory Tests 11/15/20 11/15/20 11/15/20 Range/Units 18:55 18:55 18:55 WBC 13.9 H (4.0-10.0) x10^3/uL RBC 3.15 L (4.5-6.0) x10^6/uL Hgb 9.1 L (14.0-18.0) g/dL Hct 27.0 L (40.0-52.0) % MCV 85.7 (78.0-93.0) fL MCH 28.9 (26.0-32.0) pg MCHC 33.7 (32.0-36.0) g/dL RDW Coeff of Gordon 15.3 H (10.0-15.0) % Plt Count 551 H (130-400) x10^3/uL Immature Gran % (Auto) 0.40 (0.00-0.43) % Neut % (Auto) 68.8 (50.0-80.0) % Lymph % (Auto) 24.0 L (25.0-50.0) % Todd % (Auto) 5.5 (2.0-11.0) % Eos % (Auto) 0.9 (0.0-4.0) % Baso % (Auto) 0.4 (0.2-1.2) % Neut # (Auto) 9.5 H (1.8-7.7) x10^3/uL Lymph # (Auto) 3.3 (1.0-4.8) x10^3/uL Todd # (Auto) 0.8 (0.0-0.8) x10^3/uL Eos # (Auto) 0.1 (0.0-0.5) x10^3/uL Baso # (Auto) 0.1 (0.0-0.2) x10^3/uL Immature Gran # (Auto) 0.06 (0.00-0.07) x10^3/uL Sodium 131 L (136-145) mmol/L Potassium 4.9 D (3.5-5.1) mmol/L Chloride 97 L (98-107) mmol/L Carbon Dioxide 24 (21-32) mmol/L Anion Gap 14.9 (5-15) mmol/L BUN 30 H (7-18) mg/dL Creatinine 1.1 (0.70-1.30) mg/dL Est Cr Clr Drug Dosing TNP Estimated GFR (MDRD) > 60 Glucose 472 H* (70-99) mg/dL Lactic Acid 1.9 (0.4-2.0) mmol/L Calcium 8.8 (8.5-10.1) mg/dL Corrected Calcium 10.5 H (8.5-10.1) mg/dL Total Bilirubin 0.2 (0.2-1.0) mg/dL AST 13 L (15-37) U/L ALT 18 (16-63) U/L Alkaline Phosphatase 181 H (46-116) U/L C-Reactive Protein 9.2 H (<=0.9) mg/dL Total Protein 8.5 H (6.4-8.2) g/dL Albumin 1.9 L (3.4-5.0) g/dL Globulin 6.6 Albumin/Globulin Ratio 0.29 SARS CoV-2 RNA Rapid JOSÉ MIGUEL (NEGATIVE) 11/15/20 Range/Units 22:50 WBC (4.0-10.0) x10^3/uL RBC (4.5-6.0) x10^6/uL Hgb (14.0-18.0) g/dL Hct (40.0-52.0) % MCV (78.0-93.0) fL MCH (26.0-32.0) pg MCHC (32.0-36.0) g/dL RDW Coeff of Gordon (10.0-15.0) % Plt Count (130-400) x10^3/uL Immature Gran % (Auto) (0.00-0.43) % Neut % (Auto) (50.0-80.0) % Lymph % (Auto) (25.0-50.0) % Todd % (Auto) (2.0-11.0) % Eos % (Auto) (0.0-4.0) % Baso % (Auto) (0.2-1.2) % Neut # (Auto) (1.8-7.7) x10^3/uL Lymph # (Auto) (1.0-4.8) x10^3/uL Todd # (Auto) (0.0-0.8) x10^3/uL Eos # (Auto) (0.0-0.5) x10^3/uL Baso # (Auto) (0.0-0.2) x10^3/uL Immature Gran # (Auto) (0.00-0.07) x10^3/uL Sodium (136-145) mmol/L Potassium (3.5-5.1) mmol/L Chloride (98-107) mmol/L Carbon Dioxide (21-32) mmol/L Anion Gap (5-15) mmol/L BUN (7-18) mg/dL Creatinine (0.70-1.30) mg/dL Est Cr Clr Drug Dosing Estimated GFR (MDRD) Glucose (70-99) mg/dL Lactic Acid (0.4-2.0) mmol/L Calcium (8.5-10.1) mg/dL Corrected Calcium (8.5-10.1) mg/dL Total Bilirubin (0.2-1.0) mg/dL AST (15-37) U/L ALT (16-63) U/L Alkaline Phosphatase (46-116) U/L C-Reactive Protein (<=0.9) mg/dL Total Protein (6.4-8.2) g/dL Albumin (3.4-5.0) g/dL Globulin Albumin/Globulin Ratio SARS CoV-2 RNA Rapid JOSÉ MIGUEL Negative (NEGATIVE) Meds: Medications Generic Name Dose Route Start Last Admin Trade Name Freq PRN Reason Stop Dose Admin Acetaminophen 650 mg 11/15/20 23:38 Acetaminophen 325 Mg Tab PO Q4H PRN Pain (Mild 1-3)/fever Dextrose/Water 50 ml 11/15/20 23:44 50% Dextrose In Water 50 Ml Syringe IVPUSH ASDIRECTED PRN Hypoglycemia Glucagon 1 mg 11/15/20 23:44 Glucagon,Human Recombinant 1 Mg Vial IM ASDIRECTED PRN Hypoglycemia Hydromorphone HCl 0.5 mg 11/16/20 02:30 Hydromorphone 0.5 Mg/0.5 Ml Syringe IVPUSH Q4H PRN Pain (severe 7-10) Vancomycin HCl 1 gm/ Sodium 250 mls @ 250 mls/hr 11/15/20 23:42 Chloride IV 11/16/20 00:41 STAT ONE Sodium Chloride 1,000 mls @ 100 mls/hr 11/15/20 23:45 Normal Saline IV ASDIRECTED [facility] Insulin Glargine 30 unit 11/16/20 08:00 Insulin Glarg,Human.Rec.Analog 100 Unit/Ml SUBCUT DAILY [facility] Insulin Human Lispro 0 unit 11/16/20 08:00 Insulin Lispro 100 Units/Ml 3 Ml Vial SUBCUT TIDMEALS [facility] Protocol Sodium Chloride 10 ml 11/15/20 18:47 Sodium Chloride 0.9% 10 Ml Syringe FLUSH ASDIRECTED PRN Keep Vein Open Vancomycin HCl 1 dose 11/15/20 23:45 Pharmacy To Dose - Vancomycin .XX ASDIRECTED DI Discontinued Medications Generic Name Dose Route Start Last Admin Trade Name Ramez PRN Reason Stop Dose Admin Fentanyl 25 mcg 11/15/20 19:33 11/15/20 19:38 Fentanyl 50 Mcg/Ml Sdv IVPUSH 11/15/20 19:34 25 mcg ONETIME ONE Administration Fentanyl 25 mcg 11/15/20 21:05 11/15/20 21:05 Fentanyl 50 Mcg/Ml Sdv IVPUSH 11/15/20 21:06 25 mcg ONETIME ONE Administration Fentanyl 25 mcg 11/15/20 23:24 11/15/20 23:30 Fentanyl 50 Mcg/Ml Sdv IVPUSH 11/15/20 23:25 25 mcg ONETIME ONE Administration Iopamidol 100 ml 11/15/20 20:15 11/15/20 19:55 Iopamidol 612 Mg/Ml 100 Ml Bottle IVPUSH 11/15/20 20:16 100 ml ONETIME ONE Administration - Re-Assessments/Exams Free Text/Narrative Re-Assessment/Exam: 11/15/20 1950- CT scan done of right knee. Patient has been given Fentanyl for pain with improvement. Labs show WBC of 13.6, hemoglobin 9.1, CRP 9.2. 2100-This provider with other emergent patients. Patient given another dose of FEntanyl due to pain. Contacted [facility] and spoke with ortho who reviewed previous chart, recommended would need surgical drainage of knee and IV antibiotics. Recommended to aspirate knee prior to antibiotics if able and obtain gram stain to help direct which antibiotic for best coverage. [id number]. CT scan report shows large effusion with possible septic joint. Did contact [facility] for possible admission there, no available beds. Have spoken with Dr. Oconnell who recommended contacting [facility]. Did reach out to them and ER physician spoke with Dr. Gillis. Would not be available for surgical care of this patient as out of office after tonight. Dr. Oconnell aware. Covid screen done. Will be admitted to [facility] here by Dr. Oconnell. Is aware of orthopedic recommendations. Departure - Departure Time of Disposition: 23:52 Condition: Fair - Discharge Information *PRESCRIPTION DRUG MONITORING PROGRAM REVIEWED*: No *COPY OF PRESCRIPTION DRUG MONITORING REPORT IN PATIENT KAREN: No Sepsis Event Note (ED) - Focused Exam Vital Signs: Vital Signs Temp Pulse Resp BP Pulse Ox 11/15/20 18:47 98.3 F 112 H 24 H 109/85 99 - My Orders Last 24 Hours: My Active Orders 11/15/20 23:19 Patient Status [ADT] Routine - Assessment/Plan Last 24 Hours: My Active Orders 11/15/20 23:19 Patient Status [ADT] Routine
[2020-11-15 19:26] LABS: CHLORIDE,CL 97 mmol/L (98-107); SODIUM,NA 131 mmol/L (136-145)
[2020-11-15 19:27] LABS: ANION GAP 14.9 mmol/L (5-15)
[2020-11-15] MEDS ORDERED: fentaNYL 50 MCG/ML SDV IVPUSH ONE ×3 (19:33→23:24)
[2020-11-15] MEDS ORDERED: Iopamidol 612 MG/ML 100 ML Bottle IVPUSH ONE (20:15)
[2020-11-15] MEDS ORDERED: Acetaminophen 325 MG Tab PO PRN (23:38)
[2020-11-15] MEDS ORDERED: 50% Dextrose in Water 50 ML Syringe IVPUSH PRN (23:44)
[2020-11-15] MEDS ORDERED: Glucagon,Human Recombinant 1 MG Vial IM PRN (23:44)
--- NOTE | 2020-11-15 23:56 | PCM.HP.2 ---
H&P History of Present Illness - General Date of Service: 11/15/20 Admit Problem/Dx: Admission Diagnosis/Problem Admission Diagnosis/Problem Septic arthritis Source of Information: Patient History Limitations: Reports: No Limitations (speaks broken Yoruba but able to answer all questions appropriately) - History of Present Illness Initial Comments - Free Text/Narative: Mr. Patton is a 30 yo male with PMH of type 1 diabetes as well as recent MSSA bacteremia with multiple joint infections who presented to the ER for evaluation of 2 days of right knee pain. No injury or trauma. Pain has been progressively worsening since onset. Also has swelling and warmth. No color change. Has had subjective fever and chills. No thermometer at home to check his temperature. Has not had much of an appetite today. No specific home cares tried for the pain. He denies any preceding injury or trauma. States pain is similar to when he had the other infections. Has not been taking his oral antibiotics as prescribed by ID. In fact, he states he has not been taking any oral medicati ons. The only medications he is taking are his 30 units of lantus daily and then some Novolog with meals. 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 - Past Surgical History Musculoskeletal Surgical History: Reports: Amputation, Other (See Below) (I&D of ankle, knee, chest wall abscesses) Other Musculoskeletal Surgeries/Procedures:: top of left foot/toes, fingers on right hand Social & Family History - Family History Endocrine/Metabolic: Reports: Diabetes, type II - Tobacco Use Tobacco Use Status *Q: Never Tobacco User - Alcohol Use Alcohol Use History: No Alcohol Use in Last Twelve Months: No - Recreational Drug Use Recreational Drug Use: No - Living Situation & Occupation Living situation: Reports: , Other (Family lives in [place]. 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[employer].) Occupation: Employed H&P Review of Systems - Review of Systems: Review Of Systems: See Below General: Reports: Fever, Chills, Malaise HEENT: Reports: No Symptoms Pulmonary: Reports: No Symptoms Cardiovascular: Reports: No Symptoms Gastrointestinal: Reports: No Symptoms Genitourinary: Reports: No Symptoms Musculoskeletal: Reports: Joint Pain, Joint Swelling Skin: Reports: No Symptoms Psychiatric: Reports: No Symptoms Neurological: Reports: No Symptoms Exam - Exam Exam: See Below - Vital Signs Vital Signs: Last Vital Signs Temp 36.8 C 11/15/20 18:47 Pulse 112 H 11/15/20 18:47 Resp 24 H 11/15/20 18:47 BP 109/85 11/15/20 18:47 Pulse Ox 99 11/15/20 18:47 - Exam General: Alert, Oriented, Cooperative, Moderate Distress HEENT: Conjunctiva Clear, Mucosa Moist & [place], Posterior Pharynx Clear, Pupils Equal, Pupils Reactive, TMs Clear Neck: Supple, Trachea Midline. No: Lymphadenopathy, Thyromegaly Lungs: Clear to Auscultation, Normal Respiratory Effort Cardiovascular: Regular Rate, Regular Rhythm, Normal S1, Normal S2 GI/Abdominal Exam: Normal Bowel Sounds, Soft, Non-Tender, No Organomegaly, No Distention, No Mass Extremities: No Pedal Edema, Other (Right knee visibly edematous with warmth and significant tenderness to palpation. Has limited ROM due to pain/swelling.) Peripheral Pulses: 2+: Radial (L), Radial (R) Skin: Warm, Dry, Intact - Patient Data Lab Results Last 24 hrs: Laboratory Results - last 24 hr 11/15/20 11/15/20 11/15/20 Range/Units 18:55 18:55 18:55 WBC 13.9 H (4.0-10.0) x10^3/uL RBC 3.15 L (4.5-6.0) x10^6/uL Hgb 9.1 L (14.0-18.0) g/dL Hct 27.0 L (40.0-52.0) % MCV 85.7 (78.0-93.0) fL MCH 28.9 (26.0-32.0) pg MCHC 33.7 (32.0-36.0) g/dL RDW Coeff of Gordon 15.3 H (10.0-15.0) % Plt Count 551 H (130-400) x10^3/uL Immature Gran % (Auto) 0.40 (0.00-0.43) % Neut % (Auto) 68.8 (50.0-80.0) % Lymph % (Auto) 24.0 L (25.0-50.0) % Anderson % (Auto) 5.5 (2.0-11.0) % Eos % (Auto) 0.9 (0.0-4.0) % Baso % (Auto) 0.4 (0.2-1.2) % Neut # (Auto) 9.5 H (1.8-7.7) x10^3/uL Lymph # (Auto) 3.3 (1.0-4.8) x10^3/uL Anderson # (Auto) 0.8 (0.0-0.8) x10^3/uL Eos # (Auto) 0.1 (0.0-0.5) x10^3/uL Baso # (Auto) 0.1 (0.0-0.2) x10^3/uL Immature Gran # (Auto) 0.06 (0.00-0.07) x10^3/uL Sodium 131 L (136-145) mmol/L Potassium 4.9 D (3.5-5.1) mmol/L Chloride 97 L (98-107) mmol/L Carbon Dioxide 24 (21-32) mmol/L Anion Gap 14.9 (5-15) mmol/L BUN 30 H (7-18) mg/dL Creatinine 1.1 (0.70-1.30) mg/dL Est Cr Clr Drug Dosing TNP Estimated GFR (MDRD) > 60 Glucose 472 H* (70-99) mg/dL Lactic Acid 1.9 (0.4-2.0) mmol/L Calcium 8.8 (8.5-10.1) mg/dL Corrected Calcium 10.5 H (8.5-10.1) mg/dL Total Bilirubin 0.2 (0.2-1.0) mg/dL AST 13 L (15-37) U/L ALT 18 (16-63) U/L Alkaline Phosphatase 181 H (46-116) U/L C-Reactive Protein 9.2 H (<=0.9) mg/dL Total Protein 8.5 H (6.4-8.2) g/dL Albumin 1.9 L (3.4-5.0) g/dL Globulin 6.6 Albumin/Globulin Ratio 0.29 SARS CoV-2 RNA Rapid JOSÉ MIGUEL (NEGATIVE) 11/15/20 Range/Units 22:50 WBC (4.0-10.0) x10^3/uL RBC (4.5-6.0) x10^6/uL Hgb (14.0-18.0) g/dL Hct (40.0-52.0) % MCV (78.0-93.0) fL MCH (26.0-32.0) pg MCHC (32.0-36.0) g/dL RDW Coeff of Gordon (10.0-15.0) % Plt Count (130-400) x10^3/uL Immature Gran % (Auto) (0.00-0.43) % Neut % (Auto) (50.0-80.0) % Lymph % (Auto) (25.0-50.0) % Anderson % (Auto) (2.0-11.0) % Eos % (Auto) (0.0-4.0) % Baso % (Auto) (0.2-1.2) % Neut # (Auto) (1.8-7.7) x10^3/uL Lymph # (Auto) (1.0-4.8) x10^3/uL Anderson # (Auto) (0.0-0.8) x10^3/uL Eos # (Auto) (0.0-0.5) x10^3/uL Baso # (Auto) (0.0-0.2) x10^3/uL Immature Gran # (Auto) (0.00-0.07) x10^3/uL Sodium (136-145) mmol/L Potassium (3.5-5.1) mmol/L Chloride (98-107) mmol/L Carbon Dioxide (21-32) mmol/L Anion Gap (5-15) mmol/L BUN (7-18) mg/dL Creatinine (0.70-1.30) mg/dL Est Cr Clr Drug Dosing Estimated GFR (MDRD) Glucose (70-99) mg/dL Lactic Acid (0.4-2.0) mmol/L Calcium (8.5-10.1) mg/dL Corrected Calcium (8.5-10.1) mg/dL Total Bilirubin (0.2-1.0) mg/dL AST (15-37) U/L ALT (16-63) U/L Alkaline Phosphatase (46-116) U/L C-Reactive Protein (<=0.9) mg/dL Total Protein (6.4-8.2) g/dL Albumin (3.4-5.0) g/dL Globulin Albumin/Globulin Ratio SARS CoV-2 RNA Rapid JOSÉ MIGUEL Negative (NEGATIVE) Result Diagrams: 11/15/20 18:55 11/15/20 18:55 Sepsis Event Note - Focused Exam Vital Signs: Vital Signs Temp Pulse Resp BP Pulse Ox 11/15/20 18:47 36.8 C 112 H 24 H 109/85 99 *Q Meaningful Use (ADM) - VTE *Q VTE Anticoagulation Contraindications: Medical/Procedure Contrai - Problem List (1) Sepsis SNOMED Code(s): 43481446 ICD Code: A41.9 - SEPSIS, UNSPECIFIED ORGANISM Status: Acute Current Visit: No Qualifiers: Sepsis type: sepsis due to unspecified organism Sepsis acute organ dysfunction status: without acute organ dysfunction Qualified Code(s): A41.9 - Sepsis, unspecified organism (2) Septic arthritis SNOMED Code(s): 443642754 ICD Code: M00.9 - PYOGENIC ARTHRITIS, UNSPECIFIED Status: Acute Current Visit: Yes Qualifiers: Septic arthritis location: knee Septic arthritis organism: due to unspecified organism Laterality: right Qualified Code(s): M00.9 - Pyogenic arthritis, unspecified (3) Diabetes mellitus SNOMED Code(s): 01965374 ICD Code: E11.9 - TYPE 2 DIABETES MELLITUS WITHOUT COMPLICATIONS Status: Chronic Current Visit: Yes Qualifiers: Diabetes mellitus type: type 1 Diabetes mellitus complication status: without complication Qualified Code(s): E10.9 - Type 1 diabetes mellitus without complications Problem List Initiated/Reviewed/Updated: Yes Orders Last 24hrs: Active Orders 24 hr Category Date Time Status Patient Status [ADT] Routine ADT 11/15/20 23:19 Active Blood Glucose Check, Bedside [RC] QIDACANDBED Care 11/15/20 23:44 Ordered Dietary Supplements [RC] BIDMEALS Care 11/15/20 23:43 Ordered Notify Provider Vital Signs [RC] ASDIRECTED Care 11/15/20 23:39 Ordered Oxygen Therapy [RC] PRN Care 11/15/20 23:38 Ordered Up With Assistance [RC] ASDIRECTED Care 11/15/20 23:38 Ordered VTE/DVT Education [RC] PER UNIT ROUTINE Care 11/15/20 23:38 Ordered Vital Signs [RC] Q4H Care 11/15/20 23:38 Ordered Nothing per Oral Now Diet [DIET] Diet 11/15/20 Breakfast Ordered Knee w Cont Rt [CT] Stat Exams 11/15/20 18:47 Taken BASIC METABOLIC PANEL,BMP [CHEM] Routine Lab 11/16/20 05:11 Ordered C-REACTIVE PROTEIN [CHEM] Routine Lab 11/16/20 05:11 Ordered CBC WITH AUTO DIFF [HEME] Routine Lab 11/16/20 05:11 Ordered CULTURE BLOOD [BC] Stat Lab 11/15/20 18:55 Received CULTURE BLOOD [BC] Stat Lab 11/15/20 19:00 Received SEDIMENTATION RATE AUTO [HEME] Routine Lab 11/16/20 05:11 Ordered Acetaminophen [TylenoL] Med 11/15/20 23:38 Ordered 650 mg PO Q4H PRN Dextrose 50% in Water Med 11/15/20 23:44 Ordered 50 ml IVPUSH ASDIRECTED PRN Glucagon,Human Recombinant [GlucaGen] Med 11/15/20 23:44 Ordered 1 mg IM ASDIRECTED PRN HYDROmorphone [Dilaudid] Med 11/16/20 02:30 Ordered 0.5 mg IVPUSH Q4H PRN Insulin Glarg,Human.Rec.Analog [LantUS] Med 11/16/20 08:00 Ordered 30 unit SUBCUT DAILY Insulin Lispro [HumaLOG] Med 11/16/20 08:00 Ordered See Protocol SUBCUT TIDMEALS Pharmacy to Dose - Vancomycin Med 11/15/20 23:45 Ordered 1 dose .XX ASDIRECTED Sodium Chloride 0.9% @ 100 MLS/HR(1000ml) Med 11/15/20 23:45 Ordered Sodium Chloride 0.9% [Normal Saline] 1,000 ml IV ASDIRECTED Sodium Chloride 0.9% [Saline Flush] Med 11/15/20 18:47 Active 10 ml FLUSH ASDIRECTED PRN Vancomycin 1 gm Med 11/15/20 23:42 Ordered Sodium Chloride 0.9% [Normal Saline (AdvBag)] 250 ml IV STAT Anticoagulation Contraindications VTE [AST] Per Unit Oth 11/15/20 23:38 Ordered Routine Blood Culture x2 Reflex Set [OM.PC] Stat Oth 11/15/20 18:47 Ordered Saline Lock Insert [OM.PC] Routine Oth 11/15/20 18:47 Ordered Resuscitation Status Routine Resus Stat 11/15/20 23:38 Ordered Medication Orders Acetaminophen (Acetaminophen 325 Mg Tab) 650 mg PO Q4H PRN PRN Reason: Pain (Mild 1-3)/fever Dextrose/Water (50% Dextrose In Water 50 Ml Syringe) 50 ml IVPUSH ASDIRECTED PRN PRN Reason: Hypoglycemia Glucagon (Glucagon,Human Recombinant 1 Mg Vial) 1 mg IM ASDIRECTED PRN PRN Reason: Hypoglycemia Hydromorphone HCl (Hydromorphone 0.5 Mg/0.5 Ml Syringe) 0.5 mg IVPUSH Q4H PRN PRN Reason: Pain (severe 7-10) Vancomycin HCl 1 gm/ Sodium (Chloride) 250 mls @ 250 mls/hr IV STAT ONE Stop: 11/16/20 00:41 Sodium Chloride (Normal Saline) 1,000 mls @ 100 mls/hr IV ASDIRECTED [facility] Insulin Glargine (Insulin Glarg,Human.Rec.Analog 100 Unit/Ml) 30 unit SUBCUT DAILY [facility] Insulin Human Lispro (Insulin Lispro 100 Units/Ml 3 Ml Vial) 0 unit SUBCUT TIDMEALS [facility]; Protocol Sodium Chloride (Sodium Chloride 0.9% 10 Ml Syringe) 10 ml FLUSH ASDIRECTED PRN PRN Reason: Keep Vein Open Vancomycin HCl (Pharmacy To Dose - Vancomycin) 1 dose .XX ASDIRECTED [facility] Assessment/Plan Comment:: #1 Septic Arthritis #2 Sepsis, secondary to #1 - Does meet sepsis criteria on admission with tachycardia and leukocytosis. - Lactic ok. - Will do fluids at 100 cc/hr overnight. - Attempts were made to transfer him to a facility with ortho capabilities, including hospitals in [facility], [place], and even [place]. He is not able to be accepted anywhere tonight. - We do not have a provider on tonight that does joint aspirations. Risks of delaying antibiotic therapy are greater than harm from potentially impacting culture results with giving antibiotics prior to aspiration; therefore, will go ahead and do a dose of antibiotics tonight and get an aspiration as soon as possible. Will see if 1 of my partners can assist in the morning with a joint aspiration. - Will start him on vancomycin given recent antibiotics for MSSA increasing risk for resistance. - He will need transfer for orthopedic intervention as soon as there is availability for this. #3 Type 1 Diabetes - No evidence of DKA at this time. - Glucose checks QIDAC. - Continue lantus 30 units/day. - Will do low dose SSI insulin with meals. Patient will be admitted to acute - plan to transfer to higher level of care as soon as this is available. In the meantime, will get his joint aspirated hopefully in the am and continue vancomycin for now. Detailed plans as above. Code status is full. Holding off on VTE prophylaxis until disposition plan is determined tomorrow. We will also keep him NPO unless he is able to go for surgical intervention tomorrow. - Mortality Measure Prognosis:: Good
[2020-11-16] MEDS: Sodium Chloride 0.9% 1,000 ML IV SCH ×2 (00:22→07:43)
[2020-11-16] MEDS: HYDROmorphone 0.5 MG/0.5 ML Syringe IVPUSH PRN ×4 (01:43→12:36)
[2020-11-16] MEDS: Insulin Lispro 100 Units/ML 3 ML Vial SUBCUT SCH ×2 (07:41→11:41)
[2020-11-16 07:50] LABS: CHLORIDE,CL 104 mmol/L (98-107); SODIUM,NA 137 mmol/L (136-145)
[2020-11-16] MEDS ORDERED: Insulin Glarg,Human.Rec.Analog 100 Unit/ML SUBCUT SCH (08:00)
--- NOTE | 2020-11-16 08:02 | CT ---
[id number] CT/CT Knee Right W IV EXAM: CT OF THE KNEE WITH CONTRAST. INDICATION: KNEE INFECTION COMPARISON: None. DISCUSSION: There is a large right knee joint effusion with enhancement of the synovium. Extensive soft tissue edema as well as skin thickening. No drainable fluid collection within the soft tissues. No evidence of acute osteomyelitis at this time. No fracture or dislocation. Vascular calcifications. IMPRESSION: 1. Large right knee joint effusion with enhancement of the synovium. Septic joint is not excluded. No evidence of osteomyelitis. No drainable fluid collection within the superficial soft tissues. Uzair Palmer DO 11/16/20 0800 Thank you for allowing us to participate in the care of your patient.
--- NOTE | 2020-11-16 08:32 | PCM.PN ---
- General Info Date of Service: 11/16/20 Subjective Update: 30 yo male hospital day #2 with septic arthritis. Patient states the dilaudid is working well for pain. Does not last the full 4 hours though. Nursing staff estimate around 3 hours. Had a BM overnight and he does state this was dark in color. No abdominal pain. No fever/chills since admission to the floor. No other complaints this am. - Review of Systems General: Reports: No Symptoms HEENT: Reports: No Symptoms Pulmonary: Reports: No Symptoms Cardiovascular: Reports: No Symptoms Gastrointestinal: Reports: Melena. Denies: Abdominal Pain, Constipation, Decreased Appetite, Diarrhea, Nausea, Vomiting Genitourinary: Reports: No Symptoms Musculoskeletal: Reports: Joint Pain Skin: Reports: No Symptoms Neurological: Reports: No Symptoms - Patient Data Vitals - Most Recent: Last Vital Signs Temp 37.2 C 11/16/20 05:29 Pulse 94 11/16/20 05:29 Resp 16 11/16/20 05:29 BP 118/78 11/16/20 05:29 Pulse Ox 96 11/16/20 05:29 Weight - Most Recent: 49.498 kg I&O - Last 24 Hours: Intake & Output 11/15/20 11/16/20 11/16/20 22:59 06:59 14:59 Intake Total 950 Output Total 400 Balance 550 Lab Results Last 24 Hours: Laboratory Results - last 24 hr 11/15/20 11/15/20 11/15/20 Range/Units 18:55 18:55 18:55 WBC 13.9 H (4.0-10.0) x10^3/uL RBC 3.15 L (4.5-6.0) x10^6/uL Hgb 9.1 L (14.0-18.0) g/dL Hct 27.0 L (40.0-52.0) % MCV 85.7 (78.0-93.0) fL MCH 28.9 (26.0-32.0) pg MCHC 33.7 (32.0-36.0) g/dL RDW Coeff of Gordon 15.3 H (10.0-15.0) % Plt Count 551 H (130-400) x10^3/uL Immature Gran % (Auto) 0.40 (0.00-0.43) % Neut % (Auto) 68.8 (50.0-80.0) % Lymph % (Auto) 24.0 L (25.0-50.0) % [place] % (Auto) 5.5 (2.0-11.0) % Eos % (Auto) 0.9 (0.0-4.0) % Baso % (Auto) 0.4 (0.2-1.2) % Neut # (Auto) 9.5 H (1.8-7.7) x10^3/uL Lymph # (Auto) 3.3 (1.0-4.8) x10^3/uL [place] # (Auto) 0.8 (0.0-0.8) x10^3/uL Eos # (Auto) 0.1 (0.0-0.5) x10^3/uL Baso # (Auto) 0.1 (0.0-0.2) x10^3/uL Immature Gran # (Auto) 0.06 (0.00-0.07) x10^3/uL ESR (0-15) mm/hr Sodium 131 L (136-145) mmol/L Potassium 4.9 D (3.5-5.1) mmol/L Chloride 97 L (98-107) mmol/L Carbon Dioxide 24 (21-32) mmol/L Anion Gap 14.9 (5-15) mmol/L BUN 30 H (7-18) mg/dL Creatinine 1.1 (0.70-1.30) mg/dL Est Cr Clr Drug Dosing TNP Estimated GFR (MDRD) > 60 Glucose 472 H* (70-99) mg/dL POC Glucose (70-99) mg/dL Lactic Acid 1.9 (0.4-2.0) mmol/L Calcium 8.8 (8.5-10.1) mg/dL Corrected Calcium 10.5 H (8.5-10.1) mg/dL Total Bilirubin 0.2 (0.2-1.0) mg/dL AST 13 L (15-37) U/L ALT 18 (16-63) U/L Alkaline Phosphatase 181 H (46-116) U/L C-Reactive Protein 9.2 H (<=0.9) mg/dL Total Protein 8.5 H (6.4-8.2) g/dL Albumin 1.9 L (3.4-5.0) g/dL Globulin 6.6 Albumin/Globulin Ratio 0.29 SARS CoV-2 RNA Rapid JOSÉ MIGUEL (NEGATIVE) 11/15/20 11/16/20 11/16/20 Range/Units 22:50 07:00 07:00 WBC 10.8 H (4.0-10.0) x10^3/uL RBC 2.59 L (4.5-6.0) x10^6/uL Hgb 7.4 L D (14.0-18.0) g/dL Hct 22.9 L (40.0-52.0) % MCV 88.4 (78.0-93.0) fL MCH 28.6 (26.0-32.0) pg MCHC 32.3 (32.0-36.0) g/dL RDW Coeff of Gordon 15.3 H (10.0-15.0) % Plt Count 469 H D (130-400) x10^3/uL Immature Gran % (Auto) 0.60 H (0.00-0.43) % Neut % (Auto) 52.8 (50.0-80.0) % Lymph % (Auto) 35.6 (25.0-50.0) % [place] % (Auto) 8.2 (2.0-11.0) % Eos % (Auto) 2.2 (0.0-4.0) % Baso % (Auto) 0.6 (0.2-1.2) % Neut # (Auto) 5.7 (1.8-7.7) x10^3/uL Lymph # (Auto) 3.9 (1.0-4.8) x10^3/uL [place] # (Auto) 0.9 H (0.0-0.8) x10^3/uL Eos # (Auto) 0.2 (0.0-0.5) x10^3/uL Baso # (Auto) 0.1 (0.0-0.2) x10^3/uL Immature Gran # (Auto) 0.07 (0.00-0.07) x10^3/uL ESR > 140 H (0-15) mm/hr Sodium 137 (136-145) mmol/L Potassium 4.0 (3.5-5.1) mmol/L Chloride 104 (98-107) mmol/L Carbon Dioxide 25 (21-32) mmol/L Anion Gap 12.0 (5-15) mmol/L BUN 24 H (7-18) mg/dL Creatinine 0.7 (0.70-1.30) mg/dL Est Cr Clr Drug Dosing 106.07 Estimated GFR (MDRD) > 60 Glucose 269 H (70-99) mg/dL POC Glucose (70-99) mg/dL Lactic Acid (0.4-2.0) mmol/L Calcium 8.9 (8.5-10.1) mg/dL Corrected Calcium (8.5-10.1) mg/dL Total Bilirubin (0.2-1.0) mg/dL AST (15-37) U/L ALT (16-63) U/L Alkaline Phosphatase (46-116) U/L C-Reactive Protein 9.5 H (<=0.9) mg/dL Total Protein (6.4-8.2) g/dL Albumin (3.4-5.0) g/dL Globulin Albumin/Globulin Ratio SARS CoV-2 RNA Rapid JOSÉ MIGUEL Negative (NEGATIVE) 11/16/20 Range/Units 07:02 WBC (4.0-10.0) x10^3/uL RBC (4.5-6.0) x10^6/uL Hgb (14.0-18.0) g/dL Hct (40.0-52.0) % MCV (78.0-93.0) fL MCH (26.0-32.0) pg MCHC (32.0-36.0) g/dL RDW Coeff of Gordon (10.0-15.0) % Plt Count (130-400) x10^3/uL Immature Gran % (Auto) (0.00-0.43) % Neut % (Auto) (50.0-80.0) % Lymph % (Auto) (25.0-50.0) % [place] % (Auto) (2.0-11.0) % Eos % (Auto) (0.0-4.0) % Baso % (Auto) (0.2-1.2) % Neut # (Auto) (1.8-7.7) x10^3/uL Lymph # (Auto) (1.0-4.8) x10^3/uL [place] # (Auto) (0.0-0.8) x10^3/uL Eos # (Auto) (0.0-0.5) x10^3/uL Baso # (Auto) (0.0-0.2) x10^3/uL Immature Gran # (Auto) (0.00-0.07) x10^3/uL ESR (0-15) mm/hr Sodium (136-145) mmol/L Potassium (3.5-5.1) mmol/L Chloride (98-107) mmol/L Carbon Dioxide (21-32) mmol/L Anion Gap (5-15) mmol/L BUN (7-18) mg/dL Creatinine (0.70-1.30) mg/dL Est Cr Clr Drug Dosing Estimated GFR (MDRD) Glucose (70-99) mg/dL POC Glucose 275 H (70-99) mg/dL Lactic Acid (0.4-2.0) mmol/L Calcium (8.5-10.1) mg/dL Corrected Calcium (8.5-10.1) mg/dL Total Bilirubin (0.2-1.0) mg/dL AST (15-37) U/L ALT (16-63) U/L Alkaline Phosphatase (46-116) U/L C-Reactive Protein (<=0.9) mg/dL Total Protein (6.4-8.2) g/dL Albumin (3.4-5.0) g/dL Globulin Albumin/Globulin Ratio SARS CoV-2 RNA Rapid JOSÉ MIGUEL (NEGATIVE) Med Orders - Current: Current Medications Acetaminophen (Acetaminophen 325 Mg Tab) 650 mg PO Q4H PRN PRN Reason: Pain (Mild 1-3)/fever Last Admin: 11/16/20 03:27 Dose: 650 mg Documented by: Dextrose/Water (50% Dextrose In Water 50 Ml Syringe) 50 ml IVPUSH ASDIRECTED PRN PRN Reason: Hypoglycemia Glucagon (Glucagon,Human Recombinant 1 Mg Vial) 1 mg IM ASDIRECTED PRN PRN Reason: Hypoglycemia Hydromorphone HCl (Hydromorphone 0.5 Mg/0.5 Ml Syringe) 0.5 mg IVPUSH Q3H PRN PRN Reason: Pain (severe 7-10) Sodium Chloride (Normal Saline) 1,000 mls @ 100 mls/hr IV ASDIRECTED [facility] Last Admin: 11/16/20 07:43 Dose: 100 mls/hr Documented by: Vancomycin HCl 1 gm/ Sodium (Chloride) 250 mls @ 250 mls/hr IV Q12H [facility] Insulin Glargine (Insulin Glarg,Human.Rec.Analog 100 Unit/Ml) 30 unit SUBCUT DAILY [facility] Last Admin: 11/16/20 07:42 Dose: 30 units Documented by: Insulin Human Lispro (Insulin Lispro 100 Units/Ml 3 Ml Vial) 0 unit SUBCUT TIDMEALS [facility]; Protocol Last Admin: 11/16/20 07:41 Dose: 3 units Documented by: Senna/Docusate Sodium (Docusate Sodium/Sennosides 50-8.6 Mg Tab) 1 tab PO BID [facility] Sodium Chloride (Sodium Chloride 0.9% 10 Ml Syringe) 10 ml FLUSH ASDIRECTED PRN PRN Reason: Keep Vein Open Vancomycin HCl (Pharmacy To Dose - Vancomycin) 1 dose .XX ASDIRECTED [facility] Discontinued Medications Fentanyl (Fentanyl 50 Mcg/Ml Sdv) 25 mcg IVPUSH ONETIME ONE Stop: 11/15/20 19:34 Last Admin: 11/15/20 19:38 Dose: 25 mcg Documented by: Fentanyl (Fentanyl 50 Mcg/Ml Sdv) 25 mcg IVPUSH ONETIME ONE Stop: 11/15/20 21:06 Last Admin: 11/15/20 21:05 Dose: 25 mcg Documented by: Fentanyl (Fentanyl 50 Mcg/Ml Sdv) 25 mcg IVPUSH ONETIME ONE Stop: 11/15/20 23:25 Last Admin: 11/15/20 23:30 Dose: 25 mcg Documented by: Hydromorphone HCl (Hydromorphone 0.5 Mg/0.5 Ml Syringe) 0.5 mg IVPUSH Q4H PRN PRN Reason: Pain (severe 7-10) Last Admin: 11/16/20 06:59 Dose: 0.5 mg Documented by: Vancomycin HCl 1 gm/ Sodium (Chloride) 250 mls @ 250 mls/hr IV STAT ONE Stop: 11/16/20 00:41 Last Admin: 11/16/20 00:20 Dose: 250 mls/hr Documented by: Iopamidol (Iopamidol 612 Mg/Ml 100 Ml Bottle) 100 ml IVPUSH ONETIME ONE Stop: 11/15/20 20:16 Last Admin: 11/15/20 19:55 Dose: 100 ml Documented by: - Exam General: Alert, Oriented, Cooperative, No Acute Distress HEENT: Mucous Membr. Moist/[place] Neck: Supple, Trachea Midline, No Thyromegaly. No: Lymphadenopathy Lungs: Clear to Auscultation, Normal Respiratory Effort Cardiovascular: Regular Rate, Regular Rhythm, No Murmurs GI/Abdominal Exam: Normal Bowel Sounds, Soft, Non-Tender, No Organomegaly, No Distention, No Mass Extremities: No Pedal Edema, Normal Capillary Refill, Other (Right knee with no change compared to last night) Peripheral Pulses: 2+: Radial (L), Radial (R) Skin: Warm, Dry, Intact Neurological: No New Focal Deficit - Patient Data Lab Results Last 24 hrs: Laboratory Results - last 24 hr 11/15/20 11/15/20 11/15/20 Range/Units 18:55 18:55 18:55 WBC 13.9 H (4.0-10.0) x10^3/uL RBC 3.15 L (4.5-6.0) x10^6/uL Hgb 9.1 L (14.0-18.0) g/dL Hct 27.0 L (40.0-52.0) % MCV 85.7 (78.0-93.0) fL MCH 28.9 (26.0-32.0) pg MCHC 33.7 (32.0-36.0) g/dL RDW Coeff of Gordon 15.3 H (10.0-15.0) % Plt Count 551 H (130-400) x10^3/uL Immature Gran % (Auto) 0.40 (0.00-0.43) % Neut % (Auto) 68.8 (50.0-80.0) % Lymph % (Auto) 24.0 L (25.0-50.0) % [place] % (Auto) 5.5 (2.0-11.0) % Eos % (Auto) 0.9 (0.0-4.0) % Baso % (Auto) 0.4 (0.2-1.2) % Neut # (Auto) 9.5 H (1.8-7.7) x10^3/uL Lymph # (Auto) 3.3 (1.0-4.8) x10^3/uL [place] # (Auto) 0.8 (0.0-0.8) x10^3/uL Eos # (Auto) 0.1 (0.0-0.5) x10^3/uL Baso # (Auto) 0.1 (0.0-0.2) x10^3/uL Immature Gran # (Auto) 0.06 (0.00-0.07) x10^3/uL ESR (0-15) mm/hr Sodium 131 L (136-145) mmol/L Potassium 4.9 D (3.5-5.1) mmol/L Chloride 97 L (98-107) mmol/L Carbon Dioxide 24 (21-32) mmol/L Anion Gap 14.9 (5-15) mmol/L BUN 30 H (7-18) mg/dL Creatinine 1.1 (0.70-1.30) mg/dL Est Cr Clr Drug Dosing TNP Estimated GFR (MDRD) > 60 Glucose 472 H* (70-99) mg/dL POC Glucose (70-99) mg/dL Lactic Acid 1.9 (0.4-2.0) mmol/L Calcium 8.8 (8.5-10.1) mg/dL Corrected Calcium 10.5 H (8.5-10.1) mg/dL Total Bilirubin 0.2 (0.2-1.0) mg/dL AST 13 L (15-37) U/L ALT 18 (16-63) U/L Alkaline Phosphatase 181 H (46-116) U/L C-Reactive Protein 9.2 H (<=0.9) mg/dL Total Protein 8.5 H (6.4-8.2) g/dL Albumin 1.9 L (3.4-5.0) g/dL Globulin 6.6 Albumin/Globulin Ratio 0.29 SARS CoV-2 RNA Rapid JOSÉ MIGUEL (NEGATIVE) 11/15/20 11/16/20 11/16/20 Range/Units 22:50 07:00 07:00 WBC 10.8 H (4.0-10.0) x10^3/uL RBC 2.59 L (4.5-6.0) x10^6/uL Hgb 7.4 L D (14.0-18.0) g/dL Hct 22.9 L (40.0-52.0) % MCV 88.4 (78.0-93.0) fL MCH 28.6 (26.0-32.0) pg MCHC 32.3 (32.0-36.0) g/dL RDW Coeff of Gordon 15.3 H (10.0-15.0) % Plt Count 469 H D (130-400) x10^3/uL Immature Gran % (Auto) 0.60 H (0.00-0.43) % Neut % (Auto) 52.8 (50.0-80.0) % Lymph % (Auto) 35.6 (25.0-50.0) % [place] % (Auto) 8.2 (2.0-11.0) % Eos % (Auto) 2.2 (0.0-4.0) % Baso % (Auto) 0.6 (0.2-1.2) % Neut # (Auto) 5.7 (1.8-7.7) x10^3/uL Lymph # (Auto) 3.9 (1.0-4.8) x10^3/uL [place] # (Auto) 0.9 H (0.0-0.8) x10^3/uL Eos # (Auto) 0.2 (0.0-0.5) x10^3/uL Baso # (Auto) 0.1 (0.0-0.2) x10^3/uL Immature Gran # (Auto) 0.07 (0.00-0.07) x10^3/uL ESR > 140 H (0-15) mm/hr Sodium 137 (136-145) mmol/L Potassium 4.0 (3.5-5.1) mmol/L Chloride 104 (98-107) mmol/L Carbon Dioxide 25 (21-32) mmol/L Anion Gap 12.0 (5-15) mmol/L BUN 24 H (7-18) mg/dL Creatinine 0.7 (0.70-1.30) mg/dL Est Cr Clr Drug Dosing 106.07 Estimated GFR (MDRD) > 60 Glucose 269 H (70-99) mg/dL POC Glucose (70-99) mg/dL Lactic Acid (0.4-2.0) mmol/L Calcium 8.9 (8.5-10.1) mg/dL Corrected Calcium (8.5-10.1) mg/dL Total Bilirubin (0.2-1.0) mg/dL AST (15-37) U/L ALT (16-63) U/L Alkaline Phosphatase (46-116) U/L C-Reactive Protein 9.5 H (<=0.9) mg/dL Total Protein (6.4-8.2) g/dL Albumin (3.4-5.0) g/dL Globulin Albumin/Globulin Ratio SARS CoV-2 RNA Rapid JOSÉ MIGUEL Negative (NEGATIVE) 11/16/20 Range/Units 07:02 WBC (4.0-10.0) x10^3/uL RBC (4.5-6.0) x10^6/uL Hgb (14.0-18.0) g/dL Hct (40.0-52.0) % MCV (78.0-93.0) fL MCH (26.0-32.0) pg MCHC (32.0-36.0) g/dL RDW Coeff of Gordon (10.0-15.0) % Plt Count (130-400) x10^3/uL Immature Gran % (Auto) (0.00-0.43) % Neut % (Auto) (50.0-80.0) % Lymph % (Auto) (25.0-50.0) % [place] % (Auto) (2.0-11.0) % Eos % (Auto) (0.0-4.0) % Baso % (Auto) (0.2-1.2) % Neut # (Auto) (1.8-7.7) x10^3/uL Lymph # (Auto) (1.0-4.8) x10^3/uL [place] # (Auto) (0.0-0.8) x10^3/uL Eos # (Auto) (0.0-0.5) x10^3/uL Baso # (Auto) (0.0-0.2) x10^3/uL Immature Gran # (Auto) (0.00-0.07) x10^3/uL ESR (0-15) mm/hr Sodium (136-145) mmol/L Potassium (3.5-5.1) mmol/L Chloride (98-107) mmol/L Carbon Dioxide (21-32) mmol/L Anion Gap (5-15) mmol/L BUN (7-18) mg/dL Creatinine (0.70-1.30) mg/dL Est Cr Clr Drug Dosing Estimated GFR (MDRD) Glucose (70-99) mg/dL POC Glucose 275 H (70-99) mg/dL Lactic Acid (0.4-2.0) mmol/L Calcium (8.5-10.1) mg/dL Corrected Calcium (8.5-10.1) mg/dL Total Bilirubin (0.2-1.0) mg/dL AST (15-37) U/L ALT (16-63) U/L Alkaline Phosphatase (46-116) U/L C-Reactive Protein (<=0.9) mg/dL Total Protein (6.4-8.2) g/dL Albumin (3.4-5.0) g/dL Globulin Albumin/Globulin Ratio SARS CoV-2 RNA Rapid JOSÉ MIGUEL (NEGATIVE) Result Diagrams: 11/16/20 07:00 11/16/20 07:00 Sepsis Event Note - Evaluation Sepsis Screening Result: No Definite Risk - Focused Exam Vital Signs: Vital Signs Temp Pulse Resp BP Pulse Ox 11/16/20 05:29 37.2 C 94 16 118/78 96 11/16/20 02:25 37.7 C 96 16 126/84 95 11/16/20 00:30 37.2 C 102 H 16 126/84 96 11/15/20 21:00 37.9 C - Problem List & Annotations (1) Sepsis SNOMED Code(s): 32619750 Code(s): A41.9 - SEPSIS, UNSPECIFIED ORGANISM Status: Acute Current Visit : No Qualifiers: Sepsis type: sepsis due to unspecified organism Sepsis acute organ dysfunction status: without acute organ dysfunction Qualified Code(s): A41.9 - Sepsis, unspecified organism (2) Septic arthritis SNOMED Code(s): 818571966 Code(s): M00.9 - PYOGENIC ARTHRITIS, UNSPECIFIED Status: Acute Current Visit: Yes Qualifiers: Septic arthritis location: knee Septic arthritis organism: due to unspecified organism Laterality: right Qualified Code(s): M00.9 - Pyogenic arthritis, unspecified (3) Diabetes mellitus SNOMED Code(s): 29242873 Code(s): E11.9 - TYPE 2 DIABETES MELLITUS WITHOUT COMPLICATIONS Status: Chronic Current Visit: Yes Qualifiers: Diabetes mellitus type: type 1 Diabetes mellitus complication status: without complication Qualified Code(s): E10.9 - Type 1 diabetes mellitus without complications (4) Anemia SNOMED Code(s): 682115812 Code(s): D64.9 - ANEMIA, UNSPECIFIED Status: Acute Current Visit: Yes Qualifiers: Anemia type: unspecified type Qualified Code(s): D64.9 - Anemia, unspecified - Problem List Review Problem List Initiated/Reviewed/Updated: Yes - My Orders Last 24 Hours: My Active Orders 11/15/20 Breakfast Nothing per Oral Now Diet [DIET] 11/15/20 23:38 Oxygen Therapy [RC] PRN Up With Assistance [RC] 08,20 VTE/DVT Education [RC] PER UNIT ROUTINE Vital Signs [RC] 02,06,10,14,18,22 Acetaminophen [TylenoL] 650 mg PO Q4H PRN Anticoagulation Contraindications VTE [AST] Per Unit Routine Resuscitation Status Routine 11/15/20 23:39 Notify Provider Vital Signs [RC] .PRN 11/15/20 23:43 Dietary Supplements [RC] 10,16 11/15/20 23:44 Blood Glucose Check, Bedside [RC] 07,11,17,20 Dextrose 50% in Water 50 ml IVPUSH ASDIRECTED PRN Glucagon,Human Recombinant [GlucaGen] 1 mg IM ASDIRECTED PRN 11/15/20 23:45 Pharmacy to Dose - Vancomycin 1 dose .XX ASDIRECTED Sodium Chloride 0.9% [Normal Saline] 1,000 ml IV ASDIRECTED 11/16/20 07:54 CELL COUNT,BODY FLUID [BF] Routine CULTURE BODY FLUID [RM] Routine GRAM STAIN [RM] Routine 11/16/20 07:57 Fecal Occult Bld Diag Imm [RC] ASDIRECTED 11/16/20 08:00 Docusate Sodium/Sennosides [Senna Plus] 1 tab PO BID Insulin Glarg,Human.Rec.Analog [LantUS] 30 unit SUBCUT DAILY Insulin Lispro [HumaLOG] See Protocol SUBCUT TIDMEALS 11/16/20 10:00 HYDROmorphone [Dilaudid] 0.5 mg IVPUSH Q3H PRN 11/16/20 12:00 Vancomycin 1 gm Sodium Chloride 0.9% [Normal Saline (AdvBag)] 250 ml IV Q12H 11/17/20 11:30 VANCOMYCIN TROUGH [CHEM] Timed - Assessment Assessment:: 30 yo male hospital day #2 with sepsis secondary to septic arthritis. Feeling about the same but pain is controlled with dilaudid. - Plan Plan:: #1 Septic Arthritis #2 Sepsis, secondary to #1 - Does meet sepsis criteria on admission with tachycardia and leukocytosis. Resolving. - Lactic ok. - Attempts were made to transfer him to a facility with ortho capabilities last night and he was not able to be accepted. - Dr. Perez to do aspiration of his knee this morning. Testing on synovial fluid can be done in house. Therefore, as soon as preliminary results available, I will call [facility] again with an update/bed request. He is NPO until we know timing for transfer to [facility]. - Continue vancomycin. Pharmacy to dose. - Continue dilaudid but will change frequency to q3h PRN. Will add senna plus BID for stools. #3 Type 1 Diabetes - No evidence of DKA on admission or now. - Glucose checks QIDAC. - Continue lantus 30 units/day. - Will do low dose SSI insulin with meals. #4 Anemia - Hgb down to 7.4 this am. Last Hgb on [place] lab was 7.9 so this is not far off his baseline. - Will do stool occult blood today. - Recheck Hgb this pm at 2. Will also check iron studies and vitamin levels with this. Patient will be admitted to acute - plan to transfer to higher level of care as soon as this is available. In the meantime, will get his joint aspirated hopefully today and continue vancomycin for now. Detailed plans as above. Code status is full. Holding off on VTE prophylaxis until disposition plan is determined. We will also keep him NPO in case he is able to go for surgical intervention today.
--- NOTE | 2020-11-16 08:33 | PCM.SN.2 ---
- Free Text/Narrative Note: Procedure: Knee Joint Aspiration Indication: Septic Arthritis Location: right knee, lateral approach Pre-Procedure Diagnosis: Septic Arthritis Post-Procedure Diagnosis: Same Informed Consent and Counseling: The procedure, alternative treatment options, risks, and benefits were thoroughly explained to the patient and informed consent was obtained. Appropriate equipment and medications were set up. PROCEDURE: The appropriate timeout was taken. Knee is quite swollen and warm with some mild erythema. We identified and marked the appropriate anatomic landmarks to guide needle placement. Area was prepped with an alcohol pad, gebaur's was utilized for topical anesthetic and then 2mL of 1% w/o lido was injected for local anesthetic. Area was then prepped with CHX. Sterile gloves donned. Sterile draping applied. 18g 1.5in needle inserted into the joint with aspiration of 27 mL of yellow/bloody frothy fluid. This will be sent to the lab for analysis. Estimated blood loss was less than 1 cc. A dressing was applied to the area. Time Documentation
[2020-11-16] MEDS ORDERED: Ondansetron 4 MG/2 ML SDV IVPUSH PRN ×2 (09:13→13:30)
--- NOTE | 2020-11-16 10:52 | PCM.DCSUM1 ---
Discharge Summary - Hospital Course Brief History: Mr. Patton is a 30 yo male who was admitted with right knee septic arthritis after presenting to the ER for evaluation of increased right knee pain/swelling over the preceding 24 hours. Recent history of the same for which he did not complete the antibiotic course as prescribed. - Discharge Data Discharge Date: 11/16/20 Discharge Disposition: DC/Tfer to [facility] 02 Condition: Stable - Referral to Home Health Primary Care Physician: PCP None - Discharge Diagnosis/Problem(s) (1) Sepsis SNOMED Code(s): 82358425 ICD Code: A41.9 - SEPSIS, UNSPECIFIED ORGANISM Status: Acute Current Visit: No Qualifiers: Sepsis type: sepsis due to unspecified organism Sepsis acute organ dysfunction status: without acute organ dysfunction Qualified Code(s): A41.9 - Sepsis, unspecified organism (2) Septic arthritis SNOMED Code(s): 062804200 ICD Code: M00.9 - PYOGENIC ARTHRITIS, UNSPECIFIED Status: Acute Current Visit: Yes Qualifiers: Septic arthritis location: knee Septic arthritis organism: due to unspecified organism Laterality: right Qualified Code(s): M00.9 - Pyogenic arthritis, unspecified (3) Diabetes mellitus SNOMED Code(s): 40507929 ICD Code: E11.9 - TYPE 2 DIABETES MELLITUS WITHOUT COMPLICATIONS Status: Chronic Current Visit: Yes Qualifiers: Diabetes mellitus type: type 1 Diabetes mellitus complication status: without complication Qualified Code(s): E10.9 - Type 1 diabetes mellitus without complications (4) Anemia SNOMED Code(s): 156204120 ICD Code: D64.9 - ANEMIA, UNSPECIFIED Status: Acute Current Visit: Yes Qualifiers: Anemia type: unspecified type Qualified Code(s): D64.9 - Anemia, unspecified - Patient Summary/Data Operative Procedure(s) Performed: none Complications: none Consults: none Labs Pending at D/C: Iron studies, B12, folate Recommended Follow-up Testing/Procedures: Ortho consult, possible I&D Hospital Course: There were no ortho capable hospitals able to accept this patient last evening. Therefore, he was admitted here until that was an option. He was started on vancomycin. Dr. Perez performed needle aspiration of the right knee this morning. Results show extensive WBC, otherwise negative gram stain; rest pending. He had been kept NPO until timing of transfer was known but then was allowed to eat ad [place] once it was confirmed it would not be until the afternoon. His pain was controlled with dilaudid and nausea controlled with zofran. His hospital stay was otherwise uncomplicated. Transfer arranged to [place] for later today once a bed opens up. - Discharge Plan *PRESCRIPTION DRUG MONITORING PROGRAM REVIEWED*: No *COPY OF PRESCRIPTION DRUG MONITORING REPORT IN PATIENT KAREN: No Home Medications: Home Meds Insulin Glarg,Human.Rec.Analog [Lantus] 5 unit SQ BID #1 pen 09/02/20 [Rx] Forms: ED Department Discharge Referrals: PCP,None [Primary Care Provider] - - Discharge Summary/Plan Comment DC Time >30 min.: No Total # of Minutes for Discharge Time: 20 - General Info Date of Service: 11/16/20 Subjective Update: See progress note from today. - Patient Data Vitals - Most Recent: Last Vital Signs Temp 37.2 C 11/16/20 05:29 Pulse 94 11/16/20 05:29 Resp 16 11/16/20 05:29 BP 118/78 11/16/20 05:29 Pulse Ox 96 11/16/20 05:29 Weight - Most Recent: 49.498 kg I&O - Last 24 hours: Intake & Output 11/15/20 11/16/20 11/16/20 22:59 06:59 14:59 Intake Total 950 Output Total 400 Balance 550 Lab Results - Last 24 hrs: Laboratory Results - last 24 hr 11/15/20 11/15/20 11/15/20 Range/Units 18:55 18:55 18:55 WBC 13.9 H (4.0-10.0) x10^3/uL RBC 3.15 L (4.5-6.0) x10^6/uL Hgb 9.1 L (14.0-18.0) g/dL Hct 27.0 L (40.0-52.0) % MCV 85.7 (78.0-93.0) fL MCH 28.9 (26.0-32.0) pg MCHC 33.7 (32.0-36.0) g/dL RDW Coeff of Gordon 15.3 H (10.0-15.0) % Plt Count 551 H (130-400) x10^3/uL Immature Gran % (Auto) 0.40 (0.00-0.43) % Neut % (Auto) 68.8 (50.0-80.0) % Lymph % (Auto) 24.0 L (25.0-50.0) % [place] % (Auto) 5.5 (2.0-11.0) % Eos % (Auto) 0.9 (0.0-4.0) % Baso % (Auto) 0.4 (0.2-1.2) % Neut # (Auto) 9.5 H (1.8-7.7) x10^3/uL Lymph # (Auto) 3.3 (1.0-4.8) x10^3/uL [place] # (Auto) 0.8 (0.0-0.8) x10^3/uL Eos # (Auto) 0.1 (0.0-0.5) x10^3/uL Baso # (Auto) 0.1 (0.0-0.2) x10^3/uL Immature Gran # (Auto) 0.06 (0.00-0.07) x10^3/uL ESR (0-15) mm/hr Sodium 131 L (136-145) mmol/L Potassium 4.9 D (3.5-5.1) mmol/L Chloride 97 L (98-107) mmol/L Carbon Dioxide 24 (21-32) mmol/L Anion Gap 14.9 (5-15) mmol/L BUN 30 H (7-18) mg/dL Creatinine 1.1 (0.70-1.30) mg/dL Est Cr Clr Drug Dosing TNP Estimated GFR (MDRD) > 60 Glucose 472 H* (70-99) mg/dL POC Glucose (70-99) mg/dL Lactic Acid 1.9 (0.4-2.0) mmol/L Calcium 8.8 (8.5-10.1) mg/dL Corrected Calcium 10.5 H (8.5-10.1) mg/dL Ferritin (26-388) ng/mL Total Bilirubin 0.2 (0.2-1.0) mg/dL AST 13 L (15-37) U/L ALT 18 (16-63) U/L Alkaline Phosphatase 181 H (46-116) U/L C-Reactive Protein 9.2 H (<=0.9) mg/dL Total Protein 8.5 H (6.4-8.2) g/dL Albumin 1.9 L (3.4-5.0) g/dL Globulin 6.6 Albumin/Globulin Ratio 0.29 SARS CoV-2 RNA Rapid JOSÉ MIGUEL (NEGATIVE) 11/15/20 11/16/20 11/16/20 Range/Units 22:50 07:00 07:00 WBC 10.8 H (4.0-10.0) x10^3/uL RBC 2.59 L (4.5-6.0) x10^6/uL Hgb 7.4 L D (14.0-18.0) g/dL Hct 22.9 L (40.0-52.0) % MCV 88.4 (78.0-93.0) fL MCH 28.6 (26.0-32.0) pg MCHC 32.3 (32.0-36.0) g/dL RDW Coeff of Gordon 15.3 H (10.0-15.0) % Plt Count 469 H D (130-400) x10^3/uL Immature Gran % (Auto) 0.60 H (0.00-0.43) % Neut % (Auto) 52.8 (50.0-80.0) % Lymph % (Auto) 35.6 (25.0-50.0) % [place] % (Auto) 8.2 (2.0-11.0) % Eos % (Auto) 2.2 (0.0-4.0) % Baso % (Auto) 0.6 (0.2-1.2) % Neut # (Auto) 5.7 (1.8-7.7) x10^3/uL Lymph # (Auto) 3.9 (1.0-4.8) x10^3/uL [place] # (Auto) 0.9 H (0.0-0.8) x10^3/uL Eos # (Auto) 0.2 (0.0-0.5) x10^3/uL Baso # (Auto) 0.1 (0.0-0.2) x10^3/uL Immature Gran # (Auto) 0.07 (0.00-0.07) x10^3/uL ESR > 140 H (0-15) mm/hr Sodium 137 (136-145) mmol/L Potassium 4.0 (3.5-5.1) mmol/L Chloride 104 (98-107) mmol/L Carbon Dioxide 25 (21-32) mmol/L Anion Gap 12.0 (5-15) mmol/L BUN 24 H (7-18) mg/dL Creatinine 0.7 (0.70-1.30) mg/dL Est Cr Clr Drug Dosing 106.07 Estimated GFR (MDRD) > 60 Glucose 269 H (70-99) mg/dL POC Glucose (70-99) mg/dL Lactic Acid (0.4-2.0) mmol/L Calcium 8.9 (8.5-10.1) mg/dL Corrected Calcium (8.5-10.1) mg/dL Ferritin (26-388) ng/mL Total Bilirubin (0.2-1.0) mg/dL AST (15-37) U/L ALT (16-63) U/L Alkaline Phosphatase (46-116) U/L C-Reactive Protein 9.5 H (<=0.9) mg/dL Total Protein (6.4-8.2) g/dL Albumin (3.4-5.0) g/dL Globulin Albumin/Globulin Ratio SARS CoV-2 RNA Rapid JOSÉ MIGUEL Negative (NEGATIVE) 11/16/20 11/16/20 Range/Units 07:00 07:02 WBC (4.0-10.0) x10^3/uL RBC (4.5-6.0) x10^6/uL Hgb (14.0-18.0) g/dL Hct (40.0-52.0) % MCV (78.0-93.0) fL MCH (26.0-32.0) pg MCHC (32.0-36.0) g/dL RDW Coeff of Gordon (10.0-15.0) % Plt Count (130-400) x10^3/uL Immature Gran % (Auto) (0.00-0.43) % Neut % (Auto) (50.0-80.0) % Lymph % (Auto) (25.0-50.0) % [place] % (Auto) (2.0-11.0) % Eos % (Auto) (0.0-4.0) % Baso % (Auto) (0.2-1.2) % Neut # (Auto) (1.8-7.7) x10^3/uL Lymph # (Auto) (1.0-4.8) x10^3/uL [place] # (Auto) (0.0-0.8) x10^3/uL Eos # (Auto) (0.0-0.5) x10^3/uL Baso # (Auto) (0.0-0.2) x10^3/uL Immature Gran # (Auto) (0.00-0.07) x10^3/uL ESR (0-15) mm/hr Sodium (136-145) mmol/L Potassium (3.5-5.1) mmol/L Chloride (98-107) mmol/L Carbon Dioxide (21-32) mmol/L Anion Gap (5-15) mmol/L BUN (7-18) mg/dL Creatinine (0.70-1.30) mg/dL Est Cr Clr Drug Dosing Estimated GFR (MDRD) Glucose (70-99) mg/dL POC Glucose 275 H (70-99) mg/dL Lactic Acid (0.4-2.0) mmol/L Calcium (8.5-10.1) mg/dL Corrected Calcium (8.5-10.1) mg/dL Ferritin 419 H (26-388) ng/mL Total Bilirubin (0.2-1.0) mg/dL AST (15-37) U/L ALT (16-63) U/L Alkaline Phosphatase (46-116) U/L C-Reactive Protein (<=0.9) mg/dL Total Protein (6.4-8.2) g/dL Albumin (3.4-5.0) g/dL Globulin Albumin/Globulin Ratio SARS CoV-2 RNA Rapid JOSÉ MIGUEL (NEGATIVE) INGRID Results - Last 24 hrs: Microbiology 11/16/20 09:05 Gram Stain - Final Synovial Med Orders - Current: Current Medications Acetaminophen (Acetaminophen 325 Mg Tab) 650 mg PO Q4H PRN PRN Reason: Pain (Mild 1-3)/fever Last Admin: 11/16/20 03:27 Dose: 650 mg Documented by: Dextrose/Water (50% Dextrose In Water 50 Ml Syringe) 50 ml IVPUSH ASDIRECTED PRN PRN Reason: Hypoglycemia Glucagon (Glucagon,Human Recombinant 1 Mg Vial) 1 mg IM ASDIRECTED PRN PRN Reason: Hypoglycemia Hydromorphone HCl (Hydromorphone 0.5 Mg/0.5 Ml Syringe) 0.5 mg IVPUSH Q3H PRN PRN Reason: Pain (severe 7-10) Last Admin: 11/16/20 09:28 Dose: 0.5 mg Documented by: Sodium Chloride (Normal Saline) 1,000 mls @ 100 mls/hr IV ASDIRECTED [facility] Last Admin: 11/16/20 07:43 Dose: 100 mls/hr Documented by: Vancomycin HCl 1 gm/ Sodium (Chloride) 250 mls @ 250 mls/hr IV Q12H [facility] Insulin Glargine (Insulin Glarg,Human.Rec.Analog 100 Unit/Ml) 30 unit SUBCUT DAILY [facility] Last Admin: 11/16/20 07:42 Dose: 30 units Documented by: Insulin Human Lispro (Insulin Lispro 100 Units/Ml 3 Ml Vial) 0 unit SUBCUT TIDMEALS [facility]; Protocol Last Admin: 11/16/20 07:41 Dose: 3 units Documented by: Ondansetron HCl (Ondansetron 4 Mg/2 Ml Sdv) 4 mg IVPUSH Q6H PRN PRN Reason: Nausea Last Admin: 11/16/20 09:30 Dose: 4 mg Documented by: Senna/Docusate Sodium (Docusate Sodium/Sennosides 50-8.6 Mg Tab) 1 tab PO BID [facility] Last Admin: 11/16/20 08:43 Dose: 1 tab Documented by: Sodium Chloride (Sodium Chloride 0.9% 10 Ml Syringe) 10 ml FLUSH ASDIRECTED PRN PRN Reason: Keep Vein Open Vancomycin HCl (Pharmacy To Dose - Vancomycin) 1 dose .XX ASDIRECTED [facility] Discontinued Medications Fentanyl (Fentanyl 50 Mcg/Ml Sdv) 25 mcg IVPUSH ONETIME ONE Stop: 11/15/20 19:34 Last Admin: 11/15/20 19:38 Dose: 25 mcg Documented by: Fentanyl (Fentanyl 50 Mcg/Ml Sdv) 25 mcg IVPUSH ONETIME ONE Stop: 11/15/20 21:06 Last Admin: 11/15/20 21:05 Dose: 25 mcg Documented by: Fentanyl (Fentanyl 50 Mcg/Ml Sdv) 25 mcg IVPUSH ONETIME ONE Stop: 11/15/20 23:25 Last Admin: 11/15/20 23:30 Dose: 25 mcg Documented by: Hydromorphone HCl (Hydromorphone 0.5 Mg/0.5 Ml Syringe) 0.5 mg IVPUSH Q4H PRN PRN Reason: Pain (severe 7-10) Last Admin: 11/16/20 06:59 Dose: 0.5 mg Documented by: Vancomycin HCl 1 gm/ Sodium (Chloride) 250 mls @ 250 mls/hr IV STAT ONE Stop: 11/16/20 00:41 Last Admin: 11/16/20 00:20 Dose: 250 mls/hr Documented by: Iopamidol (Iopamidol 612 Mg/Ml 100 Ml Bottle) 100 ml IVPUSH ONETIME ONE Stop: 11/15/20 20:16 Last Admin: 11/15/20 19:55 Dose: 100 ml Documented by: Lidocaine HCl (Lidocaine 1% 5 Ml Sdv) 3 ml INFILT ONETIME ONE Stop: 11/16/20 08:46 Last Admin: 11/16/20 08:43 Dose: 3 ml Documented by: *Q Meaningful Use (DIS) - VTE *Q VTE Anticoagulation Contraindications: Medical/Procedure Contrai
[2020-11-16] MEDS ORDERED: Prochlorperazine 10 MG/2 ML SDV IV PRN (12:33)
== END 2020-11-16 13:31 | disposition short-term general hospital (02) | DRG 872 ==
LOC: VM.ED 18:42 → VM.MS 23:25
PROVIDERS: ADMIT Family Medicine; ATTEND Family Medicine
DX: A41.9 Sepsis, unspecified organism (principal); M00.9 Pyogenic arthritis, unspecified; E10.9 Type 1 diabetes mellitus without complications; D64.9 Anemia, unspecified; Z20.822 Contact with and (suspected) exposure to COVID-19; Z88.0 Allergy status to penicillin
CPT/HCPCS: 36415; 73701-RT; 80048; 80053; 82607; 82728; 82746; 82947; 83540; 83550; 83605; 85025; 85652; 86140; 87040; 87070; 87205; 89050; 89051; 89060; 96374; 96376; 99284; 99285-25; A9270-GY; J1170; J1815-GY; J2405; J3010; J3370; J7030; J7050; Q9967; U0002